=== PATIENT | female | born 1955 | race Caucasian/White ===

== ENCOUNTER 2017-05-12 12:27 | Emergency (ER) | payer MEDICARE, SELFPAY ==
[2017-05-12 12:28] VITALS: BP 146/92; PULSE 89; RESP 18; TEMP 36.4; O2SAT 99; BMI 22.6
--- NOTE | 2017-05-12 13:29 | VDLE_ITS ---
Reason For Study: LEG PAIN Procedure LEFT Exam performed portable in ED. GSV is normal. A preliminary report was called and/or faxed CFV is compressible, spontaneous, phasic, to Dr. Nuno. competent, and demonstrates normal augmentation. FV is compressible, spontaneous, phasic, competent and demonstrates normal augmentation. POP V is compressible, spontaneous, phasic, competent and demonstrates normal augmentation. T/P Trunk is compressible. PTV is compressible. LT PerV is compressible. Heterogenous structure noted lt med popliteal space extending to mid calf measuring 6.9 x 3.8 cm. Non-vascular. Interpretation Summary Deep veins of the left lower extremity are patent and compressible segmentally. There is no evidence of left lower extremity deep vein thrombosis. Valvular competence appears intact within the proximal deep venous system on the left . The left greater saphenous vein appears patent and compressible segmentally. A large, non-vascular, heterogeneous structure is noted in the left medial popliteal space, and extending to the left mid-calf, measuring 6.9 cm x 3.8 cm. Clinical correlation is advised, and alternative imaging may be helpful. Ordering Physician: Hans Nuno Referring Physician: Fareed Riley Performed By: Annette Hassan RVT
[2017-05-12] MEDS: HYDROmorphone 1 MG/ML Syringe IV ×4 (13:38→18:03)
--- NOTE | 2017-05-12 13:45 | RAD_ITS ---
STUDY: X-RAY - LEFT TIBIA AND FIBULA REASON FOR EXAM: Female, 61 years old. left leg pain NKI TECHNIQUE: 2 view(s) of the tibia and fibula were obtained. COMPARISON: None. FINDINGS: There is demineralization of the tibia. There is demineralization of the fibula. Advanced degenerative changes are noted in the medial femorotibial joint. There is soft tissue swelling of the ankle suggesting edema. RAD/Tibia & Fibula 2 Views IMPRESSION: No acute bone injury of the tibia and fibula. Electronically Signed: Suleman Blandon MD at 14:45 EDT Tel , Service support ,
[2017-05-12 13:51] LABS: Absolute Lymphocyte Count 1.71 X10^3/ul (0.83-4.51); Absolute Neutrophil Count 4.6 X10^3/uL (2.0-7.7); Basophil# 0.04 X10^3/uL; Basophil% 0.6 % (0-1); Eosinophil# 0.33 X10^3/uL; Eosinophils% 4.6 % (0-5); Hematocrit 36.4 % (37-47); Hemoglobin 12.2 g/dl (12.0-15.0); Lymphocyte # 1.71 X10^3/ul (4.0); Lymphocyte % 23.7 % (19-41); Mean Corp Hgb Conc 33.5 g/gl (32-36); Mean Corpuscular Hgb 30.4 pg (27.0-32.0); Mean Corpuscular Volume 90.8 fL (81-99); Mean Platelet Vol. 9.4 fl (6.2-12.0); Monocyte# 0.58 X10^3/uL; Neutrophil # 4.56 X10^3/uL (2.7-7.7); POSITIVE COUNT NO; POSITIVE DIFFERENTIAL NO; POSITIVE MORPHOLOGY NO; Platelet Count 312 K/mm3 (150-450); RBC Distribution Width CV 14.5 % (11.6-14.6); RBC Distribution Width SD 47.8 fl (35.1-43.9); Red Blood Count 4.01 M/mm3 (4.2-5.4); White Blood Count 7.2 K/mm3 (4.4-11.0)
[2017-05-12 13:58] LABS: International Normalized Ratio 0.9; Prothrombin Time (Protime)PT. 12.2 SECONDS (11.7-14.9)
[2017-05-12 13:59] LABS: Partial Thromboplast Time 31.6 Seconds (24.1-36.2)
--- NOTE | 2017-05-12 14:00 | RAD_ITS ---
STUDY: X-RAY - LEFT FOOT CLINICAL: Leg pain, no specific injury. TECHNIQUE: 3 view(s) of the foot. COMPARISON: Radiographs 03/14/2016. FINDINGS: There are postoperative changes with orthopedic hardware transfixing a chronic calcaneal fracture. Normal visualized talonavicular, calcaneocuboid, tarsal and tarsometatarsal articulations. There are postoperative changes of the first metatarsal from bunionectomy. Normal metatarsophalangeal joint of the great toe. Normal tibial and fibular sesamoid bones. Normal interphalangeal joint of the great toe. Normal phalanges of the great toe. There is chronic dorsal dislocations of the second and third metatarsophalangeal joints with arthrosis. Normal interphalangeal joints and phalanges of the lesser toes. The soft tissue structures are unremarkable. RAD/Foot min 3 Views IMPRESSION: Chronic calcaneal fracture with postoperative changes. 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 Electronically Signed: Chris Gillespie MD at 15:11 EDT Tel , Service support ,
[2017-05-12 14:05] LABS: AST(SGOT) 18 U/L (15-37); Alanine Aminotransfer ALT/SGPT 17 U/L (13-56); Albumin, Serum 3.7 g/dL (3.2-5.0); Alkaline Phosphatase 73 U/L (45-117); Anion Gap 4 (5-15); BUN 9 mg/dL (7-18); BUN/Creat Ratio 13.8 RATIO (10-20); CPK Total, Creatine Kinase 81 U/L (26-192); Calcium,Total 8.9 mg/dL (8.5-10.1); Chloride 95 mmol/L (98-107); Creatinine, Serum 0.65 mg/dL (0.55-1.02); EST Glomerular Filtration Rate 98 mL/min (>60); Est Glom Filt Rate - Afr Amer 119 mL/min (>60); Estimated Creatinine Clearance 87.24 ml/min; Globulin 3.6 g/dL (2.2-4.2); Glucose 71 mg/dL (74-106); Potassium 3.4 mmol/L (3.5-5.1); Protein, Total 7.3 g/dL (6.4-8.2); Sodium Level 135 mmol/L (136-145)
--- NOTE | 2017-05-12 14:15 | CT_ITS ---
STUDY: CT LEFT LOWER LEG WITH CONTRAST REASON FOR EXAM: Female, 61 years old. Leg mass RADIATION DOSAGE (If Supplied By Facility): CTDIvol = ( 15.35 ) mGy, DLP = ( 653.11 ) mGycm TECHNIQUE: Transaxial CT imaging of the knee was performed post contrast administration. The examination was performed with intravenous administration of 100 ml of Isovue 300 contrast material. COMPARISON: None. FINDINGS: Normal medial femoral condyle and medial tibial plateau. Degenerative changes of the of the medial knee compartment. Normal lateral femoral condyle and lateral tibial plateau. There is preservation of the articular joint space of the lateral knee compartment. Normal proximal tibiofibular articulation. Small knee joint effusion. There is no demonstrated abnormal enhancement. The patellar tendon is grossly normal. Normal Hoffa's fat pad. There is a heterogeneous mass in the medial gastrocnemius muscle measures approximately 14 x 5.6 x 7.6 cm it may represent a hematoma. Follow-up in one month is recommended to exclude a neoplastic process. CT/Extremity Lower WITH Contrast IMPRESSION: There is a heterogeneous mass in the medial gastrocnemius muscle measures approximately 14 x 5.6 x 7.6 cm it may represent a hematoma. Follow-up in one month is recommended to exclude a neoplastic process. Electronically Signed: Suleman Blandon MD at 15:34 EDT Tel , Service support ,
[2017-05-12 14:34] VITALS: BP 113/85; PULSE 87; RESP 22; O2SAT 96
[2017-05-12 16:18] VITALS: BP 153/87; PULSE 84; RESP 18; O2SAT 94
--- NOTE | 2017-05-12 16:34 | NURSING ---
GARETT GUSTAFSON REFUSED CALLED [facility]
--- NOTE | 2017-05-12 16:50 | ED.VISSUMM ---
- ER Visit Summary Date of Service: 05/12/17 Chief Complaint: Leg pain History of Present Illness: The patient is a 61 F with left calf pain that started suddenly this morning. Pain is severe and worse with movement. Patient had calcaneal surgery in February, but otherwise she has been doing well. She has a history of hep C. She does not take blood thinners. No history of DVT. No history of this kind of pain before. Physical Examination: Vital signs unremarkable. Afebrile. Patient is very uncomfortable. Grabbing her left leg. Pain with the slightest touch or movement of her left calf. Skin is firm on palpation. Enlarged compared to the right side. Neurovascular intact distally. Skin appears grossly intact. She has left foot postoperative changes, but the wound site looks like it is healing well. Test Results: Lab work largely unremarkable. CK normal. Coags normal. X-ray showed postoperative changes and nothing acute. Ultrasound showed no evidence of DVT but there is an underlying mass. CT was done and showed a 14 x 5 x 7 cm mass concerning for hematoma versus underlying neoplasm. Emergency Department Course and Treatment: Patient required several doses of Dilaudid and was still having a lot of pain. I spoke with her surgeons on-call partner and notify them that the patient was in the ED. I also spoke with orthopedics here, and they were concerned given the possibility of an underlying malignancy that the patient should go to a higher level of care for appropriate care. I called [facility] and the orthopedic doctor there recommended that the patient go to the [facility]. I spoke with Dr. Lofton who is on-call for the [facility]. He said that the patient should go to medicine and they could evaluate the patient if needed. At the time of this dictation, I am awaiting a call back from medicine at the [facility]. Dr. George accepted the patient. She wants to go by private vehicle. Discussed risks. Treatment Plan: As above Disposition: Transfer to F Impression: 1. Left leg mass This note was generated with [employer] dictation software. It may contain incorrect words, spelling, and punctuation that were not noted in review of the chart prior to signing ED Disposition - Plan for ED Patient: Chief Complaint: Lower Extremity Injury Referrals: Fareed Riley DO [Primary Care Provider] -
--- NOTE | 2017-05-12 16:53 | ED.DCSUM_ITS ---
- ER Visit Summary Date of Service: 05/12/17 Chief Complaint: Leg pain History of Present Illness: The patient is a 61 F with left calf pain that started suddenly this morning. Pain is severe and worse with movement. Patient had calcaneal surgery in February, but otherwise she has been doing well. She has a history of hep C. She does not take blood thinners. No history of DVT. No history of this kind of pain before. Physical Examination: Vital signs unremarkable. Afebrile. Patient is very uncomfortable. Grabbing her left leg. Pain with the slightest touch or movement of her left calf. Skin is firm on palpation. Enlarged compared to the right side. Neurovascular intact distally. Skin appears grossly intact. She has left foot postoperative changes, but the wound site looks like it is healing well. Test Results: Lab work largely unremarkable. CK normal. Coags normal. X-ray showed postoperative changes and nothing acute. Ultrasound showed no evidence of DVT but there is an underlying mass. CT was done and showed a 14 x 5 x 7 cm mass concerning for hematoma versus underlying neoplasm. Emergency Department Course and Treatment: Patient required several doses of Dilaudid and was still having a lot of pain. I spoke with her surgeons on-call partner and notify them that the patient was in the ED. I also spoke with orthopedics here, and they were concerned given the possibility of an underlying malignancy that the patient should go to a higher level of care for appropriate care. I called [facility] and the orthopedic doctor there recommended that the patient go to the [facility]. I spoke with Dr. Lofton who is on-call for the [facility]. He said that the patient should go to medicine and they could evaluate the patient if needed. At the time of this dictation, I am awaiting a call back from medicine at the [facility]. Dr. George accepted the patient. She wants to go by private vehicle. Discussed risks. Treatment Plan: As above Disposition: Transfer to F Impression: 1. Left leg mass This note was generated with [employer] dictation software. It may contain incorrect words, spelling, and punctuation that were not noted in review of the chart prior to signing ED Disposition - Plan for ED Patient: Chief Complaint: Lower Extremity Injury Referrals: Fareed Riley DO [Primary Care Provider] -
--- NOTE | 2017-05-12 16:54 | NURSING ---
[id number] VELAZQUEZ
--- NOTE | 2017-05-12 17:00 | NURSING ---
DR BUNCH FOR DR VELAZQUEZ
--- NOTE | 2017-05-12 17:41 | NURSING ---
[facility] MAIN [id number] BED 31 REPORT [phone]
--- NOTE | 2017-05-12 17:47 | NURSING ---
CALLED [facility]GGIEROIT ETA IS 1 HR TO 1.5 HRS CALLED [facility], THEY WILL SEND CREW
--- NOTE | 2017-05-12 18:03 | ED.RN ---
called report to Jennifer BORDEN @ [facility]
== END 2017-05-12 18:17 | disposition short-term general hospital (02) ==
PROVIDERS: Emergency Provider Emergency Medicine; Family Provider Family Medicine; PCP Family Medicine
DX: R22.42 Localized swelling, mass and lump, left lower limb (principal); J44.9 Chronic obstructive pulmonary disease, unspecified; B19.20 Unspecified viral hepatitis C without hepatic coma; K74.60 Unspecified cirrhosis of liver; Z72.0 Tobacco use
CPT/HCPCS: 73590; 73630; 73701; 80053; 82550; 85025; 85610; 85730; 93971; 96374; 96376; 99285; Q9967; A4216

== ENCOUNTER → 2017-05-23 06:50 | Outpatient (CLI) | payer MEDICARE, SELFPAY ==
--- NOTE | 2017-05-23 06:59 | MRI_ITS ---
STUDY: MRI LOWER EXTREMITY LEFT TIBIA/FIBULA WITH AND WITHOUT CONTRAST REASON FOR EXAM: Left gastrocnemius mass, symptoms for 3 weeks. TECHNIQUE: Standardized fat and water weighted pulse sequences were obtained in all 3 orthogonal planes, post contrast administration. 7 ml of Gadavist contrast material was administered intravenously for the contrast portion of the examination. COMPARISON: CT images 05/12/2017 and radiographs 05/12/2017. FINDINGS: There is a small subchondral stress fracture of the left medial tibial plateau (T2 coronal images 17, 18) with associated bone edema (inversion recovery sagittal images 7, 8). Normal visualized left fibula. There is a lesion in the medial gastrocnemius measuring 3.9 x 5.5 x 14.7 cm (AP x transverse x length). The lesion demonstrates hemorrhage on T1 sequences (T1 axial images 9-29) with heterogeneous signal intensity on T2 sequences (T2 coronal images 4-15). There is nodularity at the inferior medial aspect of the wall of the lesion (T1 sagittal images 2-4) and therefore this is of concern for a hemorrhagic soft tissue tumor. It is difficult to demonstrate contrast enhancement of the wall of the mass or nodularity because of the increased T1 signal from hemorrhage. There is very mild edema in the distal medial gastrocnemius muscle adjacent to the mass. Normal subcutis adipose space, without subcutis adipose space edema. There is a small left popliteal cyst (inversion recovery sagittal images 5, 6) with contrast enhancement of the wall of the cyst. 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 Small subchondral stress fracture of the left medial tibial plateau. Small left popliteal cyst. Electronically Signed: Chris Gillespie MD at 10:19 EDT Tel , Service support ,
== END ==
PROVIDERS: Family Provider Family Medicine; PCP Family Medicine; Visit Provider Family Medicine
DX: M84.362A Stress fracture, left tibia, initial encounter for fracture (principal); M71.22 Synovial cyst of popliteal space [Baker], left knee; R22.42 Localized swelling, mass and lump, left lower limb
CPT/HCPCS: 73720; A9585

== ENCOUNTER → 2017-05-26 10:54 | Outpatient (CLI) | payer MEDICARE, SELFPAY ==
--- NOTE | 2017-05-26 10:56 | RAD_ITS ---
STUDY: X-RAY - RIGHT HUMERUS REASON FOR EXAM: Female, 62 years old. Pain, decreased range of motion TECHNIQUE: 2 view(s) of the humerus. COMPARISON: None. FINDINGS: Normal visualized humerus. There is no demonstrated fracture or osseous destructive process. There is no demonstrated soft tissue abnormality. RAD/Humerus min 2 Views IMPRESSION: Normal x-ray examination of the humerus. Electronically Signed: Juancarlos Corona MD at 10:32 EDT , Service support ,
== END ==
PROVIDERS: Family Provider Family Medicine; PCP Family Medicine; Visit Provider Surgery Vascular Surgery
DX: M79.601 Pain in right arm (principal)
CPT/HCPCS: 73060

== ENCOUNTER 2018-03-02 11:18 | Emergency (ER) | payer MEDICARE, SELFPAY ==
[2018-03-02 11:18] VITALS: BP 159/80; PULSE 101; RESP 16; TEMP 36.4; O2SAT 97; BMI 20.9
--- NOTE | 2018-03-02 12:06 | ED.VISSUMM ---
- ER Visit Summary Date of Service: 03/02/18 Chief Complaint: Forehead laceration History of Present Illness: The patient is a 62 F who sustained a forehead laceration after a mechanical fall earlier this morning. No loss of consciousness no neck pain no other injury. She is not on any blood thinners. No vomiting. Physical Examination: Otherwise normal exam no C-spine tenderness, clear lungs. No evidence of extremity injury. She has a 2 cm laceration above her right eye in the forehead and eyebrow region. It is horizontal. No nasal septal hematoma. She is lucid coherent with a GCS of 15. Emergency Department Course and Treatment: X-rays not warranted, CT not warranted. Patient was sutured, 1 4-0 nylon suture was placed with good approximation. No further bleeding. Tetanus updated Disposition: Discharge stable condition Impression: Laceration forehead 2 cm Closed head injury This note was generated with [employer] dictation software. It may contain incorrect words, spelling, and punctuation that were not noted in review of the chart prior to signing ED Disposition - Plan for ED Patient: Disposition: Home or Assisted Living Chief Complaint: Laceration Instructions: ED Laceration All Referrals: Fareed Riley DO [Primary Care Provider] - 3-5 Days suture removal
[2018-03-02] MEDS: Diphth,Pertuss(Acell),Tet Vac 0.5 ML Vial IM (12:19)
== END 2018-03-02 12:23 | disposition home or self-care (01) ==
PROVIDERS: Emergency Provider Emergency Medicine; Family Provider Family Medicine; PCP Family Medicine
DX: S01.81XA Laceration without foreign body of other part of head, initial encounter (principal); W00.0XXA Fall on same level due to ice and snow, initial encounter; Y93.9 Activity, unspecified; Y92.9 Unspecified place or not applicable; J44.9 Chronic obstructive pulmonary disease, unspecified; Z72.0 Tobacco use
CPT/HCPCS: 12011; 90471; 90715; 99283

== ENCOUNTER 2018-07-17 12:35 | Inpatient (IN) | payer MEDICARE, SELFPAY ==
[2018-07-17 12:35] VITALS: BP 146/94; PULSE 103; RESP 18; TEMP 37.3; O2SAT 95; BMI 20.9
[2018-07-17 13:01] LABS: Absolute Lymphocyte Count 1.13 X10^3/ul (0.83-4.51); Absolute Neutrophil Count 10.1 X10^3/uL (2.0-7.7); Basophil# 0.03 X10^3/uL; Basophil% 0.2 % (0-1); Eosinophil# 0.26 X10^3/uL; Hemoglobin 10.9 g/dl (12.0-15.0); Lymphocyte # 1.13 X10^3/ul (4.0); Lymphocyte % 8.8 % (19-41); Mean Corp Hgb Conc 34.1 g/gl (32-36); Mean Corpuscular Hgb 28.5 pg (27.0-32.0); Mean Corpuscular Volume 83.6 fL (81-99); Mean Platelet Vol. 9.1 fl (6.2-12.0); Monocyte# 1.25 X10^3/uL; Monocyte% 9.8 % (0-10); Neutrophil # 10.13 X10^3/uL (2.7-7.7); POSITIVE COUNT NO; POSITIVE DIFFERENTIAL NO; POSITIVE MORPHOLOGY NO; Platelet Count 309 K/mm3 (150-450); RBC Distribution Width CV 14.4 % (11.6-14.6); RBC Distribution Width SD 42.9 fl (35.1-43.9); Red Blood Count 3.83 M/mm3 (4.2-5.4); White Blood Count 12.8 K/mm3 (4.4-11.0)
[2018-07-17 13:12] LABS: Anion Gap 5 (5-15); BUN 9 mg/dL (7-18); BUN/Creat Ratio 12.6 RATIO (10-20); Chloride 87 mmol/L (98-107); Creatinine, Serum 0.72 mg/dL (0.55-1.02); EST Glomerular Filtration Rate 88 mL/min (>60); Est Glom Filt Rate - Afr Amer 106 mL/min (>60); Estimated Creatinine Clearance 76.38 ml/min; Glucose 109 mg/dL (74-106); Potassium 3.7 mmol/L (3.5-5.1); Sodium Level 123 mmol/L (136-145)
[2018-07-17 13:25] LABS: Lactic Acid 0.5 mmol/L (0.4-2.0)
[2018-07-17 15:14] VITALS: BP 148/95; PULSE 87; RESP 20; TEMP 36.6; O2SAT 99
--- NOTE | 2018-07-17 15:18 | ED.DCSUM_ITS ---
History of Present Illness Chief Complaint: Cellulitis Detail of Chief Complaint: Right foot and leg were red and swollen Informant: Patient Onset: Days Context: Gradual Onset Timing: Continuous Quality: Redness and swelling and not feeling well Location: Scratch by dog several days ago and not feeling well since this morning Current Severity: Moderate Maximum Severity: Moderate Worsened by: Wound uncared for Relieved by: Nothing Associated Symptoms: subjective fever, not feeling well Narrative: Patient is a 63-year-old woman with history of COPD who is not a good informant. She needed to be redirected multiple times. She was speaking of a spider in the garage. She states it was a big spider. Asked how this was relevant to her foot and her daughter respond that she was scratched by a dog. Patient denies headache. She denies visual, ocular auditory symptoms. She denies cardiac respiratory symptoms. She denies nausea, vomiting diarrhea. She denies urologic symptoms. She states the redness only involve the foot it is now spread to the knee. Prior similar symptoms: Yes Recent Illness/Hospitalization: No - Past Medical History (1) Depression Status: Chronic (2) Gastroesophageal reflux disease Status: Chronic (3) H/O chronic obstructive lung disease Status: Chronic (4) Hepatitis C Status: Chronic (5) Liver cirrhosis Status: Chronic (6) Tobacco abuse Status: Chronic Past Medical History - Allergies and Home Meds Allergies/Adverse Reactions: Allergies cyclobenzaprine HCl [From Flexeril] Allergy (Verified 07/17/18 12:35) Unknown nylon [Nylon 12] Allergy (Verified 07/17/18 12:35) Unknown BANDAIDS Allergy (Uncoded 07/17/18 12:35) Unknown Primary Care Physician: Fareed Riley DO [Primary Care Provider] - Prior records reviewed: Yes Surgical History: - - Multiple surgeries including, left knee surgery, left toe dislocation pinning, others Lives: With Family Smoking Status: Current every day smoker Alcohol: Heavy Drugs: None - Family History Maternal Family History: Reports: No pertinent history Paternal Family History: Reports: No pertinent history Review of Systems General: Reports: Chills, Fever, Malaise, Subjective. Denies: Sweats, Weight loss Eyes: Denies: Visual changes - bilaterally, Blurred Vision - bilaterally, Diplopia ENT: Denies: Bilateral ear pain, Rhinorrhea, Sore throat Cardiovascular: Denies: Chest pain, Palpitations Respiratory: Denies: Dyspnea, Cough, Dyspnea on exertion Gastrointestinal: Denies: Abdominal pain, Nausea, Vomiting, Diarrhea, Melena, Hematochezia Genitourinary: Denies: Dysuria, Hematuria, Frequency Musculoskeletal: Denies: Back pain, Extremity Pain Skin: Reports: Rash, Abrasions, Wounds. Denies: Abscess Neurological: Reports: Weakness. Denies: Headache, Parasthesia, Numbness Psych: Denies: Depression Hematologic: Denies: Easy bruising, Easy bleeding Allergy: Denies: Uticaria Physical Exam Vital Signs/Narrative: Vital Signs Temp Pulse Resp BP Pulse Ox 07/17/18 12:35 99.1 F 103 H 18 146/94 H 95 Inital Vital Signs reviewed: Yes General: Well nourished, Well developed, Unkempt, No Acute Distress Head: Normocephalic, Atraumatic Eyes: Perrl, EOMI. Negative for: Pale conjunctiva, Scleral icterus, - ENT: Moist mucous membranes, No rhinorrhea Neck: Supple, Nontender Cardiovascular: Regular rate, Regular rhythm, No murmurs Respiratory: No distress, CTA bilaterally, Chest nontender Abdomen: Soft, Nontender, Nondistended, Normal bowel sounds Back: Nontender, Normal Inspection Extremities: Tenderness, Edema Skin: Normal color, Rash, Trauma, - - Is a wound noted dorsal mid right foot and abrasion anterior right ankle. There is significant cellulitis of the foot and distal foot with erythema spreading to the knee. There is right inguinal lymphadenopathy. DP and PT pulse are palpable on the right. Pulses are not palpable on the left. Neurological: Alert, Oriented x3, Cranial nerves II-XII grossly intact, Normal Strength, Normal Sensation Psychological: Normal affect, Normal Mood, Agitated - Patient upset that she needs admission. Consult to case management because she has a daughter with her who needs supervision. Diagnostic/Tx/Re-eval Laboratory Results 07/17/18 07/17/18 07/17/18 12:48 12:48 12:48 WBC 12.8 H RBC 3.83 L Hgb 10.9 L Hct 32.0 L MCV 83.6 MCH 28.5 MCHC 34.1 RDW 14.4 RDW Differential 42.9 Plt Count 309 MPV 9.1 Immature Gran % (Auto) 0.200 Neut % (Auto) 79.0 H Lymph % (Auto) 8.8 L Sequoyah % (Auto) 9.8 Eos % (Auto) 2.0 Baso % (Auto) 0.2 Absolute Neuts (auto) 10.1 H Absolute Lymphs (auto) 1.13 Total Counted Not Reportable Sodium 123 L Potassium 3.7 Chloride 87 L Carbon Dioxide 31.0 Anion Gap 5 BUN 9 Creatinine 0.72 Estim Creat Clear Calc 76.38 Est GFR (MDRD) Af Amer 106 Est GFR (MDRD) Non-Af 88 BUN/Creatinine Ratio 12.6 Glucose 109 H Lactic Acid 0.5 Calcium 9.0 - Medical Decision Making Patient has cellulitis. Need to rule out sepsis versus severe sepsis etc. Appropriate blood work was ordered per nursing protocol. Patient has a white count. Since she has progressive cellulitis will start on Zosyn and vancomycin. Patient does have a white count. Heart rate on the monitor was 94. Since she has a source with elevated white count heart rate on monitor greater than 90 respirate greater than 20 she by definition of sepsis. Since this is progressing rapidly recommend IV antibiotics and admission. Will contact hospitalist. ED Disposition - Plan for ED Patient: Disposition: Acute Care Hospital [facility] Diagnosis: Cellulitis of right lower extremity, Sepsis, History of COPD, History of tobacco use, History of alcohol use disorder Referrals: Fareed Riley DO [Primary Care Provider] -
--- NOTE | 2018-07-17 15:38 | HP.PCM_ITS ---
Problem List (1) Cellulitis of right lower extremity Status: Acute (2) Sepsis Status: Acute Qualifiers: Sepsis type: sepsis due to unspecified organism Qualified Code(s): A41.9 - Sepsis, unspecified organism (3) History of tobacco use Status: Chronic (4) Hepatitis C Status: Chronic Qualifiers: Viral hepatitis chronicity: chronic Hepatic coma status: without hepatic coma Qualified Code(s): B18.2 - Chronic viral hepatitis C (5) Liver cirrhosis Status: Chronic Qualifiers: Hepatic cirrhosis type: alcoholic cirrhosis Ascites presence: without ascites Qualified Code(s): K70.30 - Alcoholic cirrhosis of liver without ascites History of Present Illness Date of Admission: 07/17/18 Chief Complaint: Left lower leg swelling and redness The patient is a 63 year old F past medical history of liver cirrhosis, chronic hepatitis C C, nicotine dependence, who comes in with complaints of left foot swelling with erythema ongoing since the past 4 days. Patient states that she was initially bitten by a spider on her left foot, which was very itchy, and she kept scratching and it became resolved. She later on sustained injury from the claw of 1 of her dogs in her house to the left ankle. She complains of some fever and chills as well as nausea but no vomiting. Denied chest pain or shortness of breath. Vitals in the ED show temperature of 99.1F, heart rate was 103, blood pressure is 146/94, respiratory rate was 18, SPO2 was 95% on room air. Admitting blood work showed WBC count of 12.8, hemoglobin 10.9, platelet count of 309, sodium was 123, potassium 3.7, chloride 87, bicarbonate 31, BUN 9, creatinine 0.71. Past Medical History Past Medical History (Chronic Problems): Chronic Problems History of tobacco use (Chronic) Hepatitis C (Chronic) Liver cirrhosis (Chronic) H/O chronic obstructive lung disease (Chronic) Gastroesophageal reflux disease (Chronic) Depression (Chronic) Tobacco abuse (Chronic) Chronic pain (Chronic) Insomnia (Chronic) liver cirrhosis - etoh hep C (Chronic) Allergies cyclobenzaprine HCl [From Flexeril] Allergy (Verified 07/17/18 12:35) Unknown nylon [Nylon 12] Allergy (Verified 07/17/18 12:35) Unknown BANDAIDS Allergy (Uncoded 07/17/18 12:35) Unknown Home Medications: Ambulatory Orders Medication Instructions Recorded Budesonide/Formoterol 160/4.5 2 puff INHALATION BID 10/14/13 [Symbicort 160/4.5 Mcg Inhaler (SP)] Doxepin HCl 100 mg PO QHS 10/14/13 Oxycodone HCl 15 mg PO 4X/DAY 11/10/13 Albuterol Aerosols [Ventolin 2.5 mg INHALATION Q4HWA.RT PRN 07/17/18 Aerosols] Surgical History: - - Multiple surgeries including, left knee surgery, left toe dislocation pinning, others Psychiatric History: No pertinent psych hx [employer]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 Denies: Anorexia, Chills, Fever, Weakness, Weight Change Eyes: Denies: Blurred vision, Cataracts, Conjunctivae Inflammation, Pain, Redness HEENT: Denies: Dysphasia, Head Aches, Hearing Changes, Sinus Congestion, Sinus Drainage, Sore Throat Cardiovascular: Denies: Chest Pain, Claudication, Orthopnea, Palpitations, Paroxysmal Noc. Dyspnea Respiratory: Denies: Cough, Shortness of Breath, Shortness of breath at rest, Shortness of breath upon exertion, Sputum production Gastrointestinal: Denies: Abdominal Pain, Constipation, Hematemesis, Hematochezia, Nausea, Vomiting Genitourinary: Denies: Dysuria, Frequency Gynecological: Denies: Breast symptoms, Excessively long or heavy periods Musculoskeletal: Denies: Joint Pain, Joint stiffness, Joint swelling, Joint Tenderness Skin: Reports: Skin Changes - redness and swelling of foot and lower leg, Wounds Neurological: Denies: Difficulty swallowing, Focal weakness, Numbness, Tingling Psychiatric: Denies: Anxiety, Depression, Homicidal Ideations, Suicidal Ideations Hematologic/ Lymphatic: Denies: Easy Bruising, Easy Bleeding VTE Information - Inpt Only VTE Present on Admission: No VTE Pharm Prophylaxis ordered?: Yes Patient Problems: Active and Suspected Problems Cellulitis of right lower extremity (Acute) Sepsis (Acute) History of alcohol use disorder (Acute) - Physical Exam General: Alert, Oriented x3, Cooperative HEENT: Atraumatic, PERRLA, EOMI, Normocephalic Oral: Dry Mucosa Neck: Supple Lungs: Clear to auscultation, Normal air movement Cardiovascular: Regular rate, Regular Rhythm, Normal S1, Normal S2, No murmurs Abdomen: Bowel Sounds Present, Soft, Non Tender, Non-Distended, No Hepato- splenomegaly Extremities: Edema - bilateral pedal edema +1 in right leg and +2 in left leg with erythema, edema in left foot, extending to lower leg with 2 areas of ulcerations. Skin: - - 2 puncture wounds on the dorsum of left foot and ankle Musculoskeletal: No Tenderness to Palpation of Joints or Extremities Lymphatic: No Cervical, Supraclavicular, or Inguinal Adenopathy Neurological: Cranial nerves II-XII grossly intact, Neuro grossly intact Psych/Mental Status: Normal Affect, Appropriate Vital Signs Temp Pulse Resp BP Pulse Ox 97.8 F 87 20 H 148/9 H 99 07/17/18 15:14 07/17/18 15:14 07/17/18 15:14 07/17/18 15:14 07/17/18 15:14 Oxygen Delivery Method Room Air Weight: 58.967 kg Body Mass Index (BMI) 20.9 Laboratory Tests Past 24 Hrs 07/17/18 07/17/18 07/17/18 12:48 12:48 12:48 WBC 12.8 H RBC 3.83 L Hgb 10.9 L Hct 32.0 L MCV 83.6 MCH 28.5 MCHC 34.1 RDW 14.4 RDW Differential 42.9 Plt Count 309 MPV 9.1 Immature Gran % (Auto) 0.200 Neut % (Auto) 79.0 H Lymph % (Auto) 8.8 L [place] % (Auto) 9.8 Eos % (Auto) 2.0 Baso % (Auto) 0.2 Absolute Neuts (auto) 10.1 H Absolute Lymphs (auto) 1.13 Total Counted Not Reportable Sodium 123 L Potassium 3.7 Chloride 87 L Carbon Dioxide 31.0 Anion Gap 5 BUN 9 Creatinine 0.72 Estim Creat Clear Calc 76.38 Est GFR (MDRD) Af Amer 106 Est GFR (MDRD) Non-Af 88 BUN/Creatinine Ratio 12.6 Glucose 109 H Lactic Acid 0.5 Calcium 9.0 Assessment/Plan All Active Problems Cellulitis of right lower extremity (Acute) Sepsis (Acute) History of alcohol use disorder (Acute) Fall (Acute) Fracture of calcaneus, left, closed (Acute) 63 year old F past medical history of liver cirrhosis, compensated, chronic hepatitis C, nicotine dependence, history of COPD, not on oxygen who comes in with complaints of left foot swelling with erythema ongoing since the past 4 days. 1. Sepsis secondary to acute left foot/leg cellulitis secondary to spider bite and also puncture wound from claw of the dog Patient looks clinically stable, elevation in WBC count to 12.8, slight tachycardia Plan: Admit to MedSurg floor, continue on IV Unasyn, elevate extremity, gentle IV fluids, repeat blood work in a.m. 2. Hyponatremia, acute, likely secondary to dehydration, will continue on IV fluids, recheck BMP 3. Nicotine dependence, on replacement, advised to quit 4. Chronic hepatitis C with liver cirrhosis, needs to follow-up in the outpatient 5. Chronic back pain, in pain management, on chronic opioids, will continue same 6. DVT PPx- Heparin SC Code Visit Inpatient E&M: 33850 Init Hosp L3
[2018-07-17 16:07] VITALS: BP 141/91; PULSE 91; RESP 20; TEMP 36.6; O2SAT 98
--- NOTE | 2018-07-17 16:10 | ED.RN ---
UNABLE TO OBTAIN SECOND BLOOD CULTURE, PT BECAME IRRITABLE, DECLINED FURTHER ATTEMPTS.
--- NOTE | 2018-07-17 16:20 | CASEMGMT ---
Addendum entered by Gela Wilson 07/17/18 16:32: Patient states that she has a lady that comes in her home every once in awhile through [facility] but not sure if she is an Aide. States she does not do anything. States sits there and passes time until she has to leave. DAVE Tsang Original Note: RN CM Assessment Introduced role of RN CM to patient and patient 17yo dtr Farida at bedside.? Patient is alert, oriented and able?to participate in RN CM Assessment. ?Care providers, pharmacy, and demographics verified. Presentation: RLE- scratched by dog and c/o redness, swelling. Admit Dx: Right Foot Wound Re-Admit: No Barriers/Issues: None, Patient states all her family dies of cancer, Lack of Support system. Has a 17yo Dtr that lives with her- turns 20yo in October. PCP: Fareed Riley Specialists: States quit seeing specialist for her Liver and lungs in [place]- states just does not want to see them anymore, denies distance being an issue. [facility] [place] [facility] [place] [facility] Rx Benefit:?Yes LNOK: Dtr Farida De Dios LW/HPOA: States has a LW, denies HPOA or wanting information on HPOA Living Arrangements:?Lives with 17yo Dtr in a SS home, 3 steps to enter front, 1 step to enter back. ADL?s: Independent with ambulation and ADL's Transportation: Patient drives, drove self here and plans to drive herself on [place]. Dtr here at hospital and only has her drivers permit- her father will come pick her up. DME: [employer] HHC: None SNF: None Goal: Home, does not think will have any needs. States if HHC recommended- ok with that and no preference on Agency, preference in network. States if IV Abx recommended- ok with that and states she is able to be educated on giving herself. No preference on Infusion company- In network. DC PLAN: Home with possible IV Abx. DAVE Tsang
[2018-07-17 17:04] VITALS: BMI 21.5
[2018-07-17 17:50] VITALS: BP 148/93; PULSE 94; RESP 18; TEMP 37.1; O2SAT 100
[2018-07-17] MEDS: oxyCODONE 5 MG Tablet 15 MG PO ×2 (17:50→21:54)
[2018-07-17] MEDS: Vancomycin IV 1,000 MG/200 ML BAG 200 MG IV (17:52)
[2018-07-17] MEDS: 0.9% Normal Saline 1,000 ML 75 ML IV (17:52)
[2018-07-17 19:28] LABS: Anion Gap 8 (5-15); BUN 7 mg/dL (7-18); BUN/Creat Ratio 9.8 RATIO (10-20); Calcium,Total 9.2 mg/dL (8.5-10.1); Chloride 88 mmol/L (98-107); Creatinine, Serum 0.72 mg/dL (0.55-1.02); EST Glomerular Filtration Rate 88 mL/min (>60); Est Glom Filt Rate - Afr Amer 107 mL/min (>60); Estimated Creatinine Clearance 76.81 ml/min; Glucose 84 mg/dL (74-106); Potassium 3.1 mmol/L (3.5-5.1); Sodium Level 126 mmol/L (136-145)
[2018-07-17] MEDS: 0.9% NaCl Peripheral Flush Adult/Peds IV ×3 (20:11→20:23)
[2018-07-17] MEDS: Ondansetron 4 MG/2 ML Vial IV (20:23)
[2018-07-17 20:30] VITALS: BP 149/85; PULSE 94; RESP 18; TEMP 37.3; O2SAT 94
[2018-07-17] MEDS: Heparin Injection (Vial) 5,000 UNIT/ML VIAL 5000 UNIT SC (21:48)
[2018-07-17] MEDS: DOXEPIN HCL 50 MG CAPSULE 100 MG PO (21:48)
[2018-07-18] MEDS: 0.9% NaCl Peripheral Flush Adult/Peds IV ×2 (02:44→08:06)
[2018-07-18 02:45] VITALS: BP 121/75; PULSE 94; RESP 18; TEMP 36.9; O2SAT 95
--- NOTE | 2018-07-18 05:06 | NURSING ---
Pt reported bumping her foot. notified and ordered a one time dose for pain med. Talked to the pt and she states that our medications don't do anything for her. Stated she was going to call her ex- and he will bring her pills. This nurse informed the pt that she cannot take pills from home while she is in the hospital. Pt states she did it the last time she was here. Pt called her daughter. Told her daughter that she is leaving and we have not done a thing for her and she is having back pain. Charge nurse notified.
[2018-07-18] MEDS: oxyCODONE 5 MG Tablet 15 MG PO (05:35)
--- NOTE | 2018-07-18 05:37 | NURSING ---
pt agreed to take the one time dose of pain med ordered by the . Pt started looking in her purse. Pt stated that she was going to snort the medication because her friend told her that snorting the medication would help her. This nurse told the pt that she would have to swallow the pills. States she is going to leave at 1 pm take her medications at home and then come back tonight. Pt states she is not going to do anything breathing treatments or blood draws today.
--- NOTE | 2018-07-18 06:50 | NURSING ---
pt refused morning labs
--- NOTE | 2018-07-18 06:57 | NURSING ---
anais was not in the refrigerator. Called Tashi in RX and said to send it down to him. Have not received it back yet.
--- NOTE | 2018-07-18 07:33 | NURSING ---
offered pt mirapex several times and she has refused. Last time offered was at shift change. Pt states that the told her it wasn't going to work and she doesn't want to try.
[2018-07-18 08:07] VITALS: BP 142/66; PULSE 104; RESP 18; TEMP 37.8; O2SAT 94
[2018-07-18] MEDS: Pramipexole Di-HCl 0.5 MG Tablet PO (08:24)
--- NOTE | 2018-07-18 08:45 | NURSING ---
Pt out to desk, yelling in hallway stating that she is going to leave. Patient states we are not managing her pain and that her foot is burning and that her back is killing her. Dr. Cortez on unit and aware, states he will see patient soon. Pt assisted back to her room and informed that Dr. Cortez would be in to see her as soon as he was able, as he was on the unit seeing other patients. Pt swearing at this nurse, stating that the doctors here lied to her about her pain. Pt reports taking 15mg tabs of oxycodone 4 times a day at home, then stated that she takes 2 tabs at a time. Pt reminded that she had 15mg of oxycodone around 0530 this am. Pt states So? What does that mean? Patient stated that her foot is more red now than it was when she came in. Pt reminded that the doctor would evaluate her foot and that she is still getting IV antibiotics. Patient still adamant that she is leaving. AMA form provided, but patient refusing to sign form. Pt asking to have IV removed, this nurse stated she would remove, but that there was no gauze in the room. This nurse left to obtain gauze and when back into room patient stated look, I did it for you. Patient bleeding from IV site onto floor. Pressure applied, covered with 2x2 and no further bleeding noted. Patient got herself dressed, except for her right shoe. Patient offered a wheelchair, but declined. Patient walked herself off unit.
--- NOTE | 2018-07-18 08:54 | NURSING ---
Patient leaving AMA, refusing to sign AMA form.
--- NOTE | 2018-07-18 09:44 | PCM.DC.SUM ---
Discharge Date and Diagnosis Date of Admission: 07/17/18 Date of Discharge: 07/18/18 - Secondary Discharge Diagnosis Chronic Problems History of tobacco use (Chronic) Hepatitis C (Chronic) Liver cirrhosis (Chronic) H/O chronic obstructive lung disease (Chronic) Gastroesophageal reflux disease (Chronic) Depression (Chronic) Tobacco abuse (Chronic) Chronic pain (Chronic) Insomnia (Chronic) liver cirrhosis - etoh hep C (Chronic) Hospital Course and Treatment Operations: None, - - Open reduction and internal fixation of left calcaneal fracture with bone graft. Procedures: None Summary of Care Provided: The patient is a 63 year old F resents with cellulitis. Patient stated that her pain was being managed appropriately and was insisting on leaving AGAINST MEDICAL ADVICE. The charge nurse, spoke with patient and informed the patient that I would see her within the next several minutes to speak with her about her cellulitis as well as her pain. Patient stated that she would not wait and insisted on leaving AGAINST MEDICAL ADVICE. I was unable to see the patient and her talk with her nor examine her. [] - Physical Exam Vital Signs Temp Pulse Resp BP Pulse Ox 37.8 C H 104 H 18 142/66 H 94 07/18/18 08:07 07/18/18 08:07 07/18/18 08:07 07/18/18 08:07 07/18/18 08:07 Oxygen Delivery Method Room Air Weight: 60.555 kg Body Mass Index (BMI) 21.5 Intake and Output for Last 24 Hours 07/16/18 07/17/18 07/18/18 23:59 23:59 23:59 Intake Total 200 / 200 1825 / 1825 Output Total 1350 / 1350 Balance 200 / 200 475 / 475 Laboratory Tests Past 24 Hrs 07/17/18 07/17/18 07/17/18 12:48 12:48 12:48 WBC 12.8 H RBC 3.83 L Hgb 10.9 L Hct 32.0 L MCV 83.6 MCH 28.5 MCHC 34.1 RDW 14.4 RDW Differential 42.9 Plt Count 309 MPV 9.1 Immature Gran % (Auto) 0.200 Neut % (Auto) 79.0 H Lymph % (Auto) 8.8 L [place] % (Auto) 9.8 Eos % (Auto) 2.0 Baso % (Auto) 0.2 Absolute Neuts (auto) 10.1 H Absolute Lymphs (auto) 1.13 Total Counted Not Reportable Sodium 123 L Potassium 3.7 Chloride 87 L Carbon Dioxide 31.0 Anion Gap 5 BUN 9 Creatinine 0.72 Estim Creat Clear Calc 76.38 Est GFR (MDRD) Af Amer 106 Est GFR (MDRD) Non-Af 88 BUN/Creatinine Ratio 12.6 Glucose 109 H Lactic Acid 0.5 Calcium 9.0 07/17/18 18:55 WBC RBC Hgb Hct MCV MCH MCHC RDW RDW Differential Plt Count MPV Immature Gran % (Auto) Neut % (Auto) Lymph % (Auto) [place] % (Auto) Eos % (Auto) Baso % (Auto) Absolute Neuts (auto) Absolute Lymphs (auto) Total Counted Sodium 126 L Potassium 3.1 L Chloride 88 L Carbon Dioxide 30.0 Anion Gap 8 BUN 7 Creatinine 0.72 Estim Creat Clear Calc 76.81 Est GFR (MDRD) Af Amer 107 Est GFR (MDRD) Non-Af 88 BUN/Creatinine Ratio 9.8 L Glucose 84 Lactic Acid Calcium 9.2 Home Medications: Medications to take at Discharge Budesonide/Formoterol 160/4.5 [Symbicort 160/4.5 Mcg Inhaler (SP)] 2 puff INHALATION BID 10/14/13 Doxepin HCl 100 mg PO QHS 10/14/13 Oxycodone HCl 15 mg PO 4X/DAY 11/10/13 Albuterol Aerosols [Ventolin Aerosols] 2.5 mg INHALATION Q4HWA.RT PRN 07/17/18 Primary Care Physician: Fareed Riley DO [Primary Care Provider] - Disposition: Against Medical Advice Medical Necessity - Tobacco Use Smoking Status: Current every day smoker Tobacco Use: Cigarettes Meaningful Use Info Meaningful Use Diagnoses (Choose all that apply): None applicable
--- NOTE | 2018-07-18 10:13 | NURSING ---
SHIFT ASSESSMENT DONE AT 0820- AP 100 & REGULAR. LUNGS CLEAR, ROOM AIR; HARSH, PRINTED FORMS PROOFREADER COUGH NOTED.BS HYPOACTIVE, STATES SMALL BM THIS AM. VERY AGITATED, C/O CARE & PERSONNEL AT [facility]. SWEARING, STATES I',M LEAVING. C/O PAIN IN BACK & RT LEG, 11/29, PRN MED GIVEN FOR RESTLESS LEGS. RT FOOT/ANKLE ERYTHEMIC/EDEMATOUS BUT INSIDE MARKED LINES. PUNCTURE SITES NOTED X2 - ONE AT [facility]KLE OOZING FLUID BUT REFUSES TO HAVE DRSG APPLIED. C/O NUMBNESS/TINGLING TO LT HAND/FINGERS, STATES SINCE YESTERDAY WHEN I WAS ADMITTED HERE.
== END 2018-07-18 08:59 | disposition left against medical advice (07) | DRG 872 ==
LOC: ED 15:21 → MS3 16:06
PROVIDERS: Admitting Provider Internal Medicine; Emergency Provider Emergency Medicine; Family Provider Family Medicine; PCP Family Medicine; Referring Provider Internal Medicine
DX: A41.9 Sepsis, unspecified organism (principal); L03.116 Cellulitis of left lower limb; E87.1 Hypo-osmolality and hyponatremia; B18.2 Chronic viral hepatitis C; G89.29 Other chronic pain; M54.9 Dorsalgia, unspecified; J44.9 Chronic obstructive pulmonary disease, unspecified; K21.9 Gastro-esophageal reflux disease without esophagitis; F32.9 Major depressive disorder, single episode, unspecified; G47.00 Insomnia, unspecified; F17.210 Nicotine dependence, cigarettes, uncomplicated; K70.30 Alcoholic cirrhosis of liver without ascites; T63.301A Toxic effect of unspecified spider venom, accidental (unintentional), initial encounter; S91.332A Puncture wound without foreign body, left foot, initial encounter
CPT/HCPCS: 36415; 80048; 83605; 85025; 87040; 99283; 99406; J7030; A4216; J2405

== ENCOUNTER → 2019-01-23 14:45 | Outpatient (CLI) | payer MEDICARE, SELFPAY ==
[2018-07-17 17:04] VITALS: BMI 21.5
--- NOTE | 2019-01-23 14:58 | MRI_ITS ---
We are attempting to reach an attending provider to discuss findings. An addendum with communication details will be sent when the communication is complete. STUDY: MRI ORBITS WITHOUT CONTRAST REASON FOR EXAM: Female, 63 years old. hemorrhage left eye post cataract surgery TECHNIQUE: Standardized multiplanar fat and water weighted pulse sequences were obtained. COMPARISON: None. FINDINGS: Exophthalmos on the left. Globe is intact. Retrobulbar mass is noted inferior to the optic nerve measuring 12 x 14 mm in AP and transverse dimensions. Local edema. Normal bilateral optic nerve sheath complexes and optic nerves. Normal bilateral extraocular muscles. Normal optic chiasm and post-chiasmatic tracts. Normal sella turcica, pituitary gland, infundibular stalk, and hypothalamus. Normal bilateral cavernous sinuses. Normal tectal plate and pineal gland. Normal flow voids within the major intracranial circulation suggesting patency by spin echo criteria. Normal size of the ventricles and extra-axial spaces for the patient's age. Normal white matter tracts of the supratentorial brain. Normal bilateral basal ganglia. Normal thalami. There is no extra-axial fluid accumulation. Normal midbrain, angela and medulla. Normal cerebellum. Normal basal cisterns. MRI/Orbit Face and Neck (Routine) IMPRESSION: Retrobulbar edema and mass consistent with hemorrhage Electronically Signed: Rich Teixeira MD at 16:50 EST , Service support ,
== END ==
PROVIDERS: Family Provider Family Medicine; PCP Family Medicine; Referring Provider Ophthalmology; Visit Provider Ophthalmology
DX: H46.12 Retrobulbar neuritis, left eye (principal); H05.232 Hemorrhage of left orbit
CPT/HCPCS: 70540

== ENCOUNTER → 2019-04-25 13:12 | Outpatient (CLI) | payer MEDICARE, SELFPAY ==
[2019-04-25 13:07] VITALS: BMI 21.5
--- NOTE | 2019-04-25 13:13 | RAD_ITS ---
STUDY: X-RAY - RIGHT WRIST REASON FOR EXAM: Medial wrist cyst. TECHNIQUE: 3 view(s) of the wrist were obtained. COMPARISON: None. FINDINGS: There is osteopenia. Normal visualized distal radius and ulna. There is joint space narrowing of the radiolunate articulation. Normal distal radioulnar articulation. Normal carpal bones. There is widening the scapholunate interval and DISI deformity. There are marginal osteophytes and joint space narrowing of the carpometacarpal articulation of the thumb. Normal second through fifth carpometacarpal articulations. Normal visualized metacarpal bones. There is an ossicle anterior to the distal radius. RAD/Wrist min 3 Views IMPRESSION: Widening of the scapholunate interval with DISI deformity. Arthrosis of the radiolunate articulation and first carpometacarpal articulation. Electronically Signed: Chris Gillespie MD at 13:40 EST Tel , Service support ,
== END ==
PROVIDERS: PCP Family Medicine; Referring Provider Orthopaedic Surgery; Visit Provider Orthopaedic Surgery
DX: M25.531 Pain in right wrist (principal)
CPT/HCPCS: 73110

== ENCOUNTER 2019-09-19 14:25 | Emergency (ER) | payer MEDICARE, MEDICAID, SELFPAY ==
[2019-05-02 14:29] VITALS: BMI 21.5
[2019-09-19 14:25] VITALS: BP 127/78; PULSE 88; RESP 18; TEMP 36.3; O2SAT 96; BMI 20.9
--- NOTE | 2019-09-19 14:42 | ED.DCSUM_ITS ---
- ER Visit Summary Date of Service: 09/19/19 Chief Complaint: Right wrist pain History of Present Illness: The patient is a 64 F who presents with right wrist pain that began 4 days ago. Patient states she was walking with her friend when he fell and grabbed on her right wrist and hand. Patient states her friend fell to the ground but she did not fall to the ground. Patient denies any head injury or loss of consciousness. Patient denies any paresthesias or weakness. Patient states she has been running her hand and wrist under hot water which has been helping somewhat. Patient states ice makes it worse. Patient states it is also worse with movement and with palpation. Patient admits to some tingling in her fingers. Patient denies any weakness. Physical Examination: Vital signs are stable. Patient is afebrile. Patient is in no acute distress. Musculoskeletal exam reveals diffuse tenderness over the right wrist and distal forearm. There is also some mild tenderness over the right hand. There is edema and ecchymosis noted. There are no deformities noted. Range of motion was limited in all motions of the right wrist and hand secondary to pain. There is no laxity appreciated. Radial pulses are equal bilaterally. Sensation was intact light touch in all digits. Capillary refill is less than 2 seconds in all digits. Test Results: X-rays of the right wrist were obtained. There is some widening of the scapholunate joint but there is no acute fracture. This was interpreted by the radiologist and reviewed by myself. Emergency Department Course and Treatment: Patient was given an injection of morphine here. Patient was placed in a Velcro wrist splint. Patient was instructed to ice and elevate the right wrist. Patient was instructed to use her oxycodone as needed for pain. Patient was instructed to follow-up with her primary care physician in 5 to 7 days. Patient understood and was agreeable with the plan. All questions were answered. Disposition: Discharge home Impression: Right wrist sprain This note was generated with [employer] dictation software. It may contain incorrect words, spelling, and punctuation that were not noted in review of the chart prior to signing ED Disposition - Plan for ED Patient: Disposition: Home or Assisted Living Diagnosis: Right wrist sprain Instructions: ED Sprain Wrist Referrals: Fareed Riley DO [Primary Care Provider] - 5-7 Days
[2019-09-19] MEDS: Morphine 4 MG/ML Syringe IM (15:02)
--- NOTE | 2019-09-19 15:06 | RAD_ITS ---
STUDY: X-RAY - RIGHT WRIST REASON FOR EXAM: Female, 64 years old. Pt states friend fell and pulled right wrist and heard pop. constant pain on anterior wrist, fingers numb and unable to move, pt states previous skin graft on right wrist TECHNIQUE: 3 view(s) of the wrist were obtained. COMPARISON: Comparison is made with prior examination dated 04/25/2019. FINDINGS: There is demineralization of the radius and ulna. Old avulsion fracture of the ulnar styloid. There is degenerative arthrosis of the radiocarpal articulation. Normal distal radioulnar articulation. Normal carpal bones. There is widening of the scapholunate articulation suggesting a sprain of the scapholunate interosseous ligament. There is evidence of DISI deformity of the carpal bones. This is stable. There is degenerative arthrosis of the carpometacarpal articulation of the thumb. Normal second through fifth carpometacarpal articulations. Normal visualized metacarpal bones. The soft tissue structures are unremarkable. RAD/Wrist min 3 Views IMPRESSION: Widening of the scapholunate interval with DISI deformity. Stable degenerative changes. Electronically Signed: Jose Villareal, at 15:35 EDT , Service support ,
[2019-09-19 15:57] VITALS: RESP 18
== END 2019-09-19 15:58 | disposition home or self-care (01) ==
PROVIDERS: Emergency Provider Emergency Medicine; PCP Family Medicine
DX: S63.501A Unspecified sprain of right wrist, initial encounter (principal); X58.XXXA Exposure to other specified factors, initial encounter; Y93.01 Activity, walking, marching and hiking; Y92.9 Unspecified place or not applicable; J44.9 Chronic obstructive pulmonary disease, unspecified; Z87.891 Personal history of nicotine dependence
CPT/HCPCS: 73110; 96372; 99283

== ENCOUNTER 2020-05-10 13:33 | Emergency (ER) | payer MEDICARE, MEDICAID, SELFPAY ==
[2020-05-10 13:34] VITALS: BP 164/93; PULSE 86; RESP 16; TEMP 36.7; O2SAT 98; BMI 23.4
--- NOTE | 2020-05-10 13:48 | RAD_ITS ---
STUDY: X-RAY - LEFT HAND REASON FOR EXAM: Female, 64 years old patient with left hand pain after injury. TECHNIQUE: 4 view(s) of the hand. COMPARISON: Radiographs of the left hand dated 12/29/2015. FINDINGS: There is joint space narrowing of the radiocarpal articulation consistent with degenerative arthrosis. There is a negative ulnar variant of the distal radioulnar articulation. There is diffuse demineralization of the carpal bones. Patient has had surgical resection of the trapezium. There are scattered lucencies within the carpal bones suggesting erosive changes. Normal carpal articulations Patient has had surgical resection of trapezium. There are degenerative and erosive changes at the proximal first metacarpal. Normal second through fifth carpometacarpal joints. There are erosive changes of the proximal second metacarpal. The metacarpals are osteopenic. There is degenerative arthrosis of the metacarpophalangeal (MCP) joints. Normal interphalangeal joint of the thumb. Normal proximal and distal phalanges of the thumb. Normal metacarpophalangeal joints of the second through fifth fingers. There is diffuse articular joint space narrowing of the proximal and distal interphalangeal joints of the second through fifth fingers, but without erosive changes or periarticular soft tissue swelling. Normal phalanges of the second through fifth fingers. There is diffuse soft tissue swelling of the hand and wrist. RAD/Hand Min 3 Views IMPRESSION: 1. Moderately severe soft tissue swelling. This may be secondary to infectious inflammatory process. 2. Osteoporosis. 3. Sequela of inflammatory arthropathy with postoperative changes of the thumb. Electronically Signed: Marisa Morfin MD at 15:18 EDT , Service support ,
--- NOTE | 2020-05-10 13:48 | RAD_ITS ---
STUDY: X-RAY - LEFT HUMERUS REASON FOR EXAM: Female, 64 years old patient with left arm injury and pain TECHNIQUE: 3 view(s) of the humerus. COMPARISON: None. FINDINGS: There is diffuse demineralization of the humerus. There is no demonstrated fracture or osseous destructive process. There are degenerative changes at the shoulder and elbow. There is soft tissue swelling at the elbow. RAD/Humerus min 2 Views IMPRESSION: 1. Degenerative arthropathy of the left shoulder and elbow. 2. No evidence for acute fracture of the humerus. Electronically Signed: Marisa Morfin MD at 15:22 EDT , Service support ,
--- NOTE | 2020-05-10 13:49 | ED.VIS.GEN ---
History of Present Illness Chief Complaint: Upper Extremity Injury Informant: Patient, Maintenance Painter Narrative: Patient states that 3 days ago she was trying to move some tire chains off of the wall barn and came down and struck her in her left hand. She states that she developed swelling and bruising of the head and distal wrist. She states that today she has developed pain on the outside of her humerus and that it seems to hurt worse with movement. She states her fingers are more swollen than they have been. Patient denies any tea colored urine. - Past Medical History (1) Chronic pain Status: Chronic (2) Depression Status: Chronic (3) Gastroesophageal reflux disease Status: Chronic (4) H/O chronic obstructive lung disease Status: Chronic (5) Hepatitis C Status: Chronic (6) Liver cirrhosis Status: Chronic Past Medical History - Allergies and Home Meds Allergies/Adverse Reactions: Allergies cyclobenzaprine HCl [From Flexeril] Allergy (Verified 05/10/20 13:35) Unknown nylon [Nylon 12] Allergy (Verified 05/10/20 13:35) Unknown BANDAIDS Allergy (Uncoded 05/10/20 13:35) Unknown Primary Care Physician: Fareed Riley DO [Primary Care Provider] - Surgical History: - Smoking Status: Current some day smoker Alcohol: Sober Drugs: None - Family History Maternal Family History: Reports: No pertinent history Paternal Family History: Reports: No pertinent history Review of Systems General: Denies: Chills, Fever, Sweats Eyes: Denies: Visual changes - bilaterally, Diplopia ENT: Denies: Rhinorrhea, Sore throat Cardiovascular: Denies: Chest pain, Palpitations Respiratory: Denies: Dyspnea, Cough, Dyspnea on exertion Gastrointestinal: Denies: Abdominal pain, Nausea, Vomiting, Diarrhea, Melena, Hematochezia Genitourinary: Denies: Dysuria, Hematuria, Frequency Musculoskeletal: Reports: Swelling, Extremity Pain. Denies: Back pain Skin: Denies: Rash, Wounds Neurological: Denies: Headache, Weakness, Numbness Physical Exam Vital Signs/Narrative: Vital Signs Temp Pulse Resp BP Pulse Ox 05/10/20 13:34 98.0 F 86 16 164/93 H 98 Inital Vital Signs reviewed: Yes General: Well nourished, Well developed, No Acute Distress Head: Normocephalic, Atraumatic Eyes: Perrl, EOMI ENT: Moist mucous membranes, No rhinorrhea Neck: Supple, Nontender Cardiovascular: Regular rate, Regular rhythm, No murmurs Respiratory: No distress, CTA bilaterally, Chest nontender Abdomen: Soft, Nontender, Nondistended, Normal bowel sounds Back: Nontender, Normal Inspection Extremities: Tenderness - Tenderness swelling and ecchymosis of the right hand and distal wrist. Patient has pain laterally over the distal humerus. There is not appear to be any swelling of the forearm or arm. No tenderness along the brachial vein and artery to the medial aspect. No palpable cords. Decre range of motio Skin: Normal color, No rash Neurological: Alert, Oriented x3, Cranial nerves II-XII grossly intact, Normal Strength, Normal Sensation Psychological: Normal affect, Normal Mood Diagnostic/Tx/Re-eval Clinical Impression(s) from Imaging Studies Hand X-Ray 05/10/20 13:48 IMPRESSION: 1. Moderately severe soft tissue swelling. This may be secondary to infectious inflammatory process. 2. Osteoporosis. 3. Sequela of inflammatory arthropathy with postoperative changes of the thumb. Electronically Signed: Marisa Morfin MD at 15:18 EDT , Service support , Humerus X-Ray 05/10/20 13:48 IMPRESSION: 1. Degenerative arthropathy of the left shoulder and elbow. 2. No evidence for acute fracture of the humerus. Electronically Signed: Marisa Morfin MD at 15:22 EDT , Service support , Forearm X-Ray 05/10/20 14:07 IMPRESSION: Soft tissue swelling without definite evidence for acute fracture. If there is still clinical concern for acute fracture, follow-up radiographs in 7-10 days maybe helpful in evaluating a healing radiographically occult fracture. Electronically Signed: Marisa Morfin MD at 15:14 EDT , Service support , - Medical Decision Making My interpretation of the plain films of the left hand left forearm and left humerus are no acute fracture. Soft tissue swelling noted. Duplex ultrasound is not available today. I can write an order for her to have one performed as an outpatient. She has oxycodone at home that she takes 15 mg 4 times a day. I am going to write for Valium. I'll have her use a sling for when she is up and moving. The patient was encouraged to try to not use the sling. If she is resting I would like her to elevate the arm and move her fingers and wrist. Advised her she needs to follow-up with her doctor in the next several days. ED Disposition - Plan for ED Patient: Disposition: Home or Assisted Living Diagnosis: Contusion of left hand, Swelling of left hand Instructions: ED Hand Contusion, ED Peripheral Edema, Unilateral Prescriptions: Diazepam [Valium] 2 mg PO TID PRN PRN #10 tablet PRN Reason: Vertigo Transmission Status: Received by [id number] Referrals: Fareed Riley DO [Primary Care Provider] - 3-5 Days Additional Instructions: You need to have a duplex ultrasound of your arm performed tomorrow to ensure there is no blood clot.
[2020-05-10] MEDS: oxyCODONE 5 MG Tablet 10 MG PO (13:53)
--- NOTE | 2020-05-10 14:07 | RAD_ITS ---
STUDY: X-RAY - LEFT RADIUS AND ULNA REASON FOR EXAM: Female, 64 years old patient with left-sided forearm injury and pain TECHNIQUE: AP and lateral view(s) of the forearm. COMPARISON: Prior comparable comparison studies are not available for review at this time. FINDINGS: There is diffuse soft tissue swelling of the forearm and wrist. There is diffuse demineralization of the osseous structures. Normal visualized radius. Normal visualized ulna. There is ulnar minus variant. There are erosive and degenerative changes at the radiocarpal articulation. There are moderately severe degenerative changes at the proximal first metacarpal. The patient has had surgical removal of the trapezium. There are moderately severe degenerative changes at the elbow. There appears to be intra-articular loose body at the elbow. RAD/Forearm 2 Views IMPRESSION: Soft tissue swelling without definite evidence for acute fracture. If there is still clinical concern for acute fracture, follow-up radiographs in 7-10 days maybe helpful in evaluating a healing radiographically occult fracture. Electronically Signed: Marisa Morfin MD at 15:14 EDT , Service support ,
[2020-05-10 15:58] VITALS: BP 138/77; PULSE 84; RESP 19; O2SAT 95
== END 2020-05-10 15:59 | disposition home or self-care (01) ==
PROVIDERS: Emergency Provider Emergency Medicine; PCP Family Medicine
DX: S60.222A Contusion of left hand, initial encounter (principal); W20.8XXA Other cause of strike by thrown, projected or falling object, initial encounter; Y93.89 Activity, other specified; Y92.71 Barn as the place of occurrence of the external cause; Y99.9 Unspecified external cause status; M81.0 Age-related osteoporosis without current pathological fracture; J44.9 Chronic obstructive pulmonary disease, unspecified; F17.200 Nicotine dependence, unspecified, uncomplicated; Z79.899 Other long term (current) drug therapy
CPT/HCPCS: 73060; 73090; 73130; 99285

== ENCOUNTER → 2020-05-12 13:58 | Outpatient (CLI) | payer MEDICARE, MEDICAID, SELFPAY ==
[2020-05-10 13:34] VITALS: BMI 23.4
--- NOTE | 2020-05-12 14:02 | VDUE_ITS ---
Reason For Study: swelling Left Proximal Left jugular vein is spontaneous, widely patent, phasic, with no intraluminal echogenicity noted. Left subclavian vein is spontaneous, widely patent, phasic, with no intraluminal echogenicity noted. Left Arm Left axillary vein is spontaneous, patent, phasic, competent, compressible and demonstrates augmentation. Left brachial vein is compressible. Left cephalic vein is compressible. Left basilic vein is compressible. Left Lower Arm Left radial vein is compressible. Left ulnar vein is compressible. Interpretation Summary Deep veins of the left upper extremity are patent and compressible segmentally. There is no evidence of deep vein thrombosis. The superficial veins of the left upper extremity, the basilic and cephalic veins, are patent and compressible. There is no evidence of left upper extremity superficial thrombophlebitis involving the veins imaged. Ordering Physician: Hans Mcintosh Performed By: Jose Martin Sung RVT ?
== END ==
PROVIDERS: PCP Family Medicine; Referring Provider Emergency Medicine; Visit Provider Emergency Medicine
DX: R22.32 Localized swelling, mass and lump, left upper limb (principal)
CPT/HCPCS: 93971

== ENCOUNTER → 2021-06-15 | Outpatient (CLI) | payer MEDICARE, MEDICAID, SELFPAY ==
[2021-06-15 16:15] LABS: ALB/GLOB Ratio 0.9 RATIO (0.9-2.4); AST(SGOT) 14 U/L (15-37); Alanine Aminotransfer ALT/SGPT 17 U/L (13-56); Albumin, Serum 3.8 g/dL (3.2-5.0); Alkaline Phosphatase 87 U/L (45-117); Anion Gap 7 (5-15); BUN 14 mg/dL (7-18); BUN/Creat Ratio 19.4 RATIO (10-20); Calcium,Total 9.5 mg/dL (8.5-10.1); Chloride 96 mmol/L (98-107); Cholesterol 168 mg/dL (200); Creatinine, Serum 0.72 mg/dL (0.55-1.02); EST Glomerular Filtration Rate 87 mL/min (>60); Est Glom Filt Rate - Afr Amer 105 mL/min (>60); Globulin 4.3 g/dL (2.2-4.2); Glucose 113 mg/dL (74-106); High Density Lipoprotein 63 mg/dL; Potassium 3.5 mmol/L (3.5-5.1); Protein, Total 8.1 g/dL (6.4-8.2); Sodium Level 134 mmol/L (136-145); Triglycerides 68 mg/dL; Very Low Density Lipoprotein 14 mg/dL (5-40)
== END | disposition home or self-care (01) ==
LOC: LAB 13:54
PROVIDERS: PCP Family Medicine; Visit Provider Family Medicine
DX: Z00.00 Encounter for general adult medical examination without abnormal findings (principal)
CPT/HCPCS: 36415; 80053; 80061

== ENCOUNTER 2021-10-14 17:44 | Emergency (ER) | payer MEDICARE, MEDICAID, SELFPAY ==
[2021-10-14 17:47] VITALS: BP 131/95; PULSE 81; RESP 18; TEMP 36.1; O2SAT 93; BMI 21.7
--- NOTE | 2021-10-14 18:49 | EDS_ITS ---
HPI History of Present Illness Chief Complaint: Dizziness Informant: patient Narrative Narrative: 3-day history nontraumatic headache subjective fevers nonproductive cough nausea and vomiting. No diarrhea. States vomiting too many to count. 5 times a day. No hematemesis. Abdominal pain due to vomiting. History of COPD. History of alcoholic cirrhosis. Hep C. Nonvaccinated for COVID no infections in the past. Reports photophobia phonophobia, denies aura. Allergy to Flexeril. Denies any urinary symptoms. Prior similar symptoms: No PFSH PFSH Medical History COPD (chronic obstructive pulmonary disease) Home Medications oxycodone 15 mg tablet 15 mg PO 4X/DAY 11/10/13 [History Last Taken Unknown] budesonide-formoterol HFA 160 mcg-4.5 mcg/actuation aerosol inhaler 2 puff inhalation BID 05/10/20 [History Last Taken Unknown] diazepam 2 mg tablet 2 mg PO TID PRN PRN Vertigo #10 TABLETS 05/10/20 [Rx Last Taken Unknown] nirmatrelvir 300 mg (150 mg x2)-ritonavir 100 mg tablet,dose pack(EUA) (Paxlovid) See Rx Instructions PO .COMPLEX #30 tabs 10/14/21 [Rx Last Taken Unknown] ondansetron 4 mg disintegrating tablet 4 mg PO Q6H PRN nausea and vomiting #10 tabs 10/14/21 [Rx Last Taken Unknown] potassium chloride 20 mEq tablet,extended release 20 meq PO DAILY #7 tabs 10/14/21 [Rx Last Taken Unknown] Allergy/AdvReac Type Severity Reaction Status Date / Time adhesive Allergy NEEDS Verified 10/14/21 17:50 FOLLOW-UP cyclobenzaprine HCl Allergy Unknown Verified 10/14/21 17:50 [From Flexeril] nylon [Nylon 12] Allergy Unknown Verified 10/14/21 17:50 Social History Smoking Status: Current some day smoker tobacco type: cigarettes ROS ROS ED Constitutional Constitutional ED: Reports fever(s); Denies chills or sweats Eyes Eyes: Denies change in vision ENT ENT ED: Denies dysphagia or sore throat Cardiovascular Cardiovascular: Denies chest pain, leg edema, palpitations or racing heartbeat Respiratory/Chest Respiratory/Chest: Reports cough; Denies dyspnea or dyspnea on exertion Gastrointestinal Gastrointestinal: Reports abdominal pain, nausea and vomiting; Denies diarrhea Genitourinary Genitourinary ED: Denies dysuria, hematuria or urinary frequency Musculoskeletal Musculoskeletal: Denies back pain, extremity pain or neck pain Integumentary Denies rash or wounds Neurologic Neurologic: Reports headache(s); Denies paresthesias or weakness EXAM Physical Exam Const Vital Signs: 10/14/21 17:47 10/14/21 18:41 10/14/21 21:06 Temperature 97.0 F L Temperature Source Temporal Pulse Rate 81 74 Respiratory Rate 18 18 Respiratory Effort Normal Respiratory Pattern Normal Blood Pressure 131/95 H 132/90 H Blood Pressure Mean 107 104 Pulse Ox 93 95 Oxygen Delivery Method Room Air Room Air Positive well nourished and well developed General Appearance ED: well developed and NAD HEENT Reports dry mucous membranes normocephalic and atraumatic Mouth ED: Yes dry mucous membranes Mouth: dry mucous membranes Eyes PERRL, EOMs intact bilaterally and conjunctivae normal General Eye ED: Yes normal appearance of both eyes Neck no lymphadenopathy and supple Neck Narrative: No meningismus General: Negative for tenderness Chest Wall Chest: Negative for tenderness Resp normal respiratory effort and normal air movement Effort and Inspection: symmetric chest movement; Negative for respiratory distress Cardio regular rate, regular rhythm and no murmurs Peripheral Pulses: pulses 2+ throughout GI normal to inspection, nondistended, normoactive bowel sounds GI Narrative: Mild mid abdominal tenderness without guarding or rebound. Negative Segovia's or McBurney's tenderness. Palpation: Negative for guarding or rebound tenderness present Back/Spine no CVA tenderness and no thoracic nor lumbar tenderness Extremity normal to inspection General Extremety ED: Negative for edema or tenderness General Extremity: Negative for edema Neuro oriented x3, CN's II-XII intact bilaterally and no sensory deficits noted Sensorium / Orientation: awake and alert Skin no rashes or lesions noted and no wounds MDM MDM MDM Narrative Medical decision making narrative: Patient nontoxic. No meningismus no focal deficits. With her headache symptoms treated with fluids Reglan Benadryl. Labs obtained white count 5 hemoglobin 15.9 potassium 2.7 creatinine 0.91. Lipase normal liver enzymes AST at 58. COVID testing returned positive. She is day 3 of symptoms. She is feeling better on reevaluation she is tolerating p.o. intake and oral potassium. I discussed treatment with the patient. She has history of cirrhosis, however her labs are stable renal function is normal from her evaluation of the medication they report precautions with taking Paxlovid however there is no direct contraindication. She is given prescription for this. Prescription for additional potassium over 7 days. Prescription for Zofran. Return precautions. All questions were answered. Lab Data Attestation: I reviewed the patient's lab results. Labs: Laboratory Results - last 24 hr 10/14/21 10/14/21 19:20 19:20 WBC 5.0 RBC 5.56 H Hgb 15.9 H Hct 46.4 MCV 83.5 MCH 28.6 MCHC 34.3 RDW Std Deviation 47.8 H RDW Coeff of [place] 15.6 H Plt Count 190 MPV 10.7 Immature Gran % (Auto) 0.400 Neut % (Auto) 71.0 H Lymph % (Auto) 15.0 L [place] % (Auto) 13.4 H Eos % (Auto) 0.0 Baso % (Auto) 0.2 Absolute Neuts (auto) 3.6 Absolute Lymphs (auto) 0.75 L Nucleated RBC % 0 Sodium 133 L Potassium 2.7 L* Chloride 90 L Carbon Dioxide 34.0 H Anion Gap 9 BUN 21 H Creatinine 0.91 Estim Creat Clear Calc 58.47 Est GFR (MDRD) Af Amer 80 Est GFR (MDRD) Non-Af 66 BUN/Creatinine Ratio 23.2 H Glucose 89 Calcium 9.6 Total Bilirubin 0.40 AST 58 H ALT 27 Alkaline Phosphatase 85 Total Protein 8.6 H Albumin 3.8 Globulin 4.8 H Albumin/Globulin Ratio 0.8 L Lipase 140 Radiography Diagnostic Testing: Clinical Impression(s) from Imaging Studies Chest X-Ray 10/14/21 19:25 IMPRESSION: Stable hyperexpansion. No focal infiltrate Electronically Signed: García Orona MD at 21:02 EDT , Discharge Plan Triage Chief Complaint: Dizziness ED Provider: Micheal Greene Dx/Rx/DC Orders Clinical Impression: COVID-19, Headache, Vomiting, Acute hypokalemia, Liver cirrhosis Instructions: Coronavirus Disease 2019 (COVID-19): Caring for Yourself or Others, ED Hypokalemia, ED Vomiting (Adult) Prescriptions: New ondansetron 4 mg tablet,disintegrating 4 mg PO Q6H PRN (Reason: nausea and vomiting) Qty: 10 0RF Paxlovid (EUA) 300 mg (150 mg x 2)-100 mg tablets,dose pack See Rx Instructions .ROUTE .COMPLEX Qty: 30 0RF Rx Instructions: take TWO 150 mg tablets of nirmatrelvir with ONE 100 mg tablet of ritonavir twice daily for 5 days potassium chloride 20 mEq tablet extended release 20 meq PO DAILY Qty: 7 0RF No Action oxycodone 15 MG tablet 15 mg PO 4X/DAY Label Comments: budesonide-formoterol 1 INHALER inhaler 2 puff INHALATION BID diazepam 2 MG tablet 2 mg PO TID PRN PRN (Reason: Vertigo) Qty: 10 0RF Primary Care Provider: Fareed Riley Referrals: Fareed Riley DO [Primary Care Provider] - 5-7 Days Disposition Disposition: Home, Self Care Discharge Date/Time: 10/14/21 21:18
[2021-10-14] MEDS: DiphenhydrAMINE 50 MG/ML Syringe 25 MG IV (19:18)
[2021-10-14] MEDS: 0.9% Normal Saline 1,000 ML 1000 ML IV (19:18)
[2021-10-14] MEDS: Metoclopramide 10 MG/2 ML Vial IV (19:18)
--- NOTE | 2021-10-14 19:25 | RAD_ITS ---
STUDY: X-RAY CHEST REASON FOR EXAM: Female, 66 years old. Cough TECHNIQUE: Single AP portable view of the chest. COMPARISON: March 11, 2016 FINDINGS: The lungs are clear and hyperexpanded. There is no demonstrated pleural abnormality. Normal size heart. Normal mediastinum and elroy. Normal visualized pulmonary arteries. Normal visualized aortic arch and descending thoracic aorta. Normal visualized thoracic spine. Normal visualized ribs, clavicles, and shoulders. There is no demonstrated abnormality of the visualized soft tissue structures of the upper abdomen. RAD/Chest 1 View (Portable) IMPRESSION: Stable hyperexpansion. No focal infiltrate Electronically Signed: García Orona MD at 21:02 EDT ,
[2021-10-14 19:36] LABS: Absolute Lymphocyte Count 0.75 X10^3/uL (0.83-4.51); Absolute Neutrophil Count 3.6 X10^3/uL (2.0-7.7); Basophil# 0.01 X10^3/uL; Basophil% 0.2 % (0-1); Hematocrit 46.4 % (37-47); Hemoglobin 15.9 g/dL (12.0-15.0); Lymphocyte # 0.75 X10^3/ul (0.83-4.51); Mean Corp Hgb Conc 34.3 g/dL (32-36); Mean Corpuscular Hgb 28.6 pg (27.0-32.0); Mean Corpuscular Volume 83.5 fL (81-99); Mean Platelet Vol. 10.7 fl (6.2-12.0); Monocyte# 0.67 X10^3/uL; Monocyte% 13.4 % (0-10); NRBC Flagged by Analyzer 0 % (0-5); Neutrophil # 3.56 X10^3/uL (2.7-7.7); Platelet Count 190 K/mm3 (150-450); RBC Distribution Width CV 15.6 % (11.6-14.6); RBC Distribution Width SD 47.8 fl (35.1-43.9); Red Blood Count 5.56 M/mm3 (4.2-5.4)
[2021-10-14 20:00] LABS: ALB/GLOB Ratio 0.8 RATIO (0.9-2.4); AST(SGOT) 58 U/L (15-37); Alanine Aminotransfer ALT/SGPT 27 U/L (13-56); Albumin, Serum 3.8 g/dL (3.2-5.0); Alkaline Phosphatase 85 U/L (45-117); Anion Gap 9 (5-15); BUN 21 mg/dL (7-18); BUN/Creat Ratio 23.2 RATIO (10-20); Calcium,Total 9.6 mg/dL (8.5-10.1); Chloride 90 mmol/L (98-107); Creatinine, Serum 0.91 mg/dL (0.55-1.02); EST Glomerular Filtration Rate 66 mL/min (>60); Est Glom Filt Rate - Afr Amer 80 mL/min (>60); Estimated Creatinine Clearance 58.47 ml/min; Globulin 4.8 g/dL (2.2-4.2); Glucose 89 mg/dL (74-106); Lipase 140 U/L (73-393); Potassium 2.7 mmol/L (3.5-5.1); Protein, Total 8.6 g/dL (6.4-8.2); Sodium Level 133 mmol/L (136-145)
[2021-10-14] MEDS: Potassium Chloride Oral Tablet 20 MEQ 40 MEQ PO (21:04)
[2021-10-14 21:06] VITALS: BP 132/90; PULSE 74; RESP 18; O2SAT 95
== END 2021-10-14 21:18 | disposition home or self-care (01) ==
PROVIDERS: Emergency Provider Emergency Medicine; PCP Family Medicine; Visit Provider Emergency Medicine
DX: U07.1 COVID-19 (principal); K70.30 Alcoholic cirrhosis of liver without ascites; J44.9 Chronic obstructive pulmonary disease, unspecified; E87.6 Hypokalemia; F17.210 Nicotine dependence, cigarettes, uncomplicated; Z79.899 Other long term (current) drug therapy
CPT/HCPCS: 71045; 80053; 83690; 85025; 87811; 96361; 96374; 96375; 99283; J7030; A4216

== ENCOUNTER 2022-04-11 17:04 | Emergency (ER) | payer MEDICARE, MEDICAID, SELFPAY ==
[2022-04-11 17:05] VITALS: BP 162/79; PULSE 79; RESP 14; TEMP 36.6; O2SAT 97; BMI 20.8
--- NOTE | 2022-04-11 18:12 | ED.RN ---
[facility] BEEN HERE AN HOUR AND A HALF, IM GOING TO [place].
== END 2022-04-11 18:09 | disposition left against medical advice (07) ==
LOC: ED 18:13
PROVIDERS: PCP Family Medicine
DX: Z53.21 Procedure and treatment not carried out due to patient leaving prior to being seen by health care provider (principal)

== ENCOUNTER 2022-05-10 14:38 | Emergency (ER) | payer MEDICARE, MEDICAID, SELFPAY ==
[2022-05-10 14:39] VITALS: BP 190/109; PULSE 108; RESP 18; TEMP 36.3; O2SAT 93; BMI 22.1
[2022-05-10 14:47] VITALS: PULSE 72; RESP 18
--- NOTE | 2022-05-10 15:28 | VDLE_ITS ---
Reason For Study: LEG SWELLING RIGHT LEFT GSV is normal. GSV is normal. CFV is compressible, spontaneous, phasic, CFV is compressible, spontaneous, phasic, competent and demonstrates normal competent, and demonstrates normal augmentation. augmentation. FV is compressible, spontaneous, phasic, FV is compressible, spontaneous, phasic, competent and demonstrates normal competent and demonstrates normal augmentation. augmentation. POP V is compressible, spontaneous, phasic, POP V is compressible, spontaneous, phasic, competent and demonstrates normal competent and demonstrates normal augmentation. augmentation. T/P Trunk is compressible. T/P Trunk is compressible. PTV is compressible. PTV is compressible. RT PerV is compressible. LT PerV is compressible. A Non-vascularized anechoic structure measuring approximately 6.07cm x 1.03cm is noted in the Rt popliteal space. Procedure This is a venous duplex using B-mode, color flow and spectral Doppler. Exam performed portable in ED. The exam was diagnostic. A preliminary report was called and/or faxed to Dr. Perez. VL/Venous Duplex US - Tee Extrem Interpretation Summary No evidence for acute deep venous thrombosis bilateral lower extremities with p atent and compressible bilateral great saphenous veins. Nonvascular right popliteal space 6.07 x 1.03 cm anechoic structure. Clinical correlation would be appropriate. Ordering Physician: Duane Perez Referring Physician: Fareed Riley Performed By: Quique Alva, DEE
--- NOTE | 2022-05-10 15:30 | EDS_ITS ---
HPI History of Present Illness Chief Complaint: General Illness Informant: patient Narrative Narrative: Patient tells me her reason for coming today is edema of both feet. She states the edema has been going on about 2 or so months. She saw her doctor a while ago. He did blood work including liver and kidney and everything was normal. He started her on an unknown diuretic. It helped a little bit but does not resolve it. After extensive questioning I also find out presents. 1 is blue and one is yellow but she does not know the name of these. These were started about the same time as her symptoms started. She did also fall yesterday because she tripped when she caught her toe. She hit her right back and she has a lump back there. She is not on blood thinners. She has baseline dyspnea and severe COPD but states it is no different than normal in the fall did not affect her breathing. She never hit her head. She has 1 spot that is a little sore. She has not been having fevers or chills. She has been eating and drinking normally. [facility] Medical History COPD (chronic obstructive pulmonary disease) Home Medications oxycodone 15 mg tablet 15 mg PO 4X/DAY 11/10/13 [History Last Taken Unknown] budesonide-formoterol HFA 160 mcg-4.5 mcg/actuation aerosol inhaler 2 puff inhalation BID 05/10/20 [History Last Taken Unknown] diazepam 2 mg tablet 2 mg PO TID PRN PRN Vertigo #10 TABLETS 05/10/20 [Rx Last Taken Unknown] nirmatrelvir 300 mg (150 mg x2)-ritonavir 100 mg tablet,dose pack(EUA) (Paxlovid) See Rx Instructions PO .COMPLEX #30 tabs 10/14/21 [Rx Last Taken Unknown] ondansetron 4 mg disintegrating tablet 4 mg PO Q6H PRN nausea and vomiting #10 t abs 10/14/21 [Rx Last Taken Unknown] potassium chloride 20 mEq tablet,extended release 20 meq PO DAILY #7 tabs 10/14/21 [Rx Last Taken Unknown] Allergy/AdvReac Type Severity Reaction Status Date / Time adhesive Allergy NEEDS Verified 05/10/22 14:41 FOLLOW-UP cyclobenzaprine HCl Allergy Unknown Verified 05/10/22 14:41 [From Flexeril] nylon [Nylon 12] Allergy Unknown Verified 05/10/22 14:41 Social History Smoking Status: Current some day smoker tobacco type: cigarettes ROS ROS ED Constitutional Constitutional ED: Denies chills, fever(s), subjective, sweats or weight loss Eyes Eyes: Denies change in vision ENT ENT ED: Denies rhinorrhea or sore throat Cardiovascular Cardiovascular: Denies chest pain, palpitations or racing heartbeat Respiratory/Chest Respiratory/Chest: Denies cough or dyspnea Gastrointestinal Gastrointestinal: Denies abdominal pain, diarrhea, nausea or vomiting Genitourinary Genitourinary ED: Denies dysuria Musculoskeletal Musculoskeletal: Reports other Details: Sore area near her right scapula. This occurred with a fall last night. Integumentary Denies rash Neurologic Neurologic: Denies headache(s) Psychiatric Psychiatric: Reports depression Hematologic/Lymphatic Hematologic/Lymphatic: Denies easy bleeding or easy bruising Allergic/Immunologic Allergic/Immunologic ED: Denies urticaria EXAM Physical Exam Narrative Exam Narrative: Patient is awake alert. She is sitting comfortably in bed. No acute distress. Is on normal conversation. HEENT shows no sign of trauma. Mucous membranes are moist Eyes show no icterus Neck is supple without JVD. Chest is clear bilaterally. Despite her history of COPD I am not hearing any wheezing. She does have a slightly swollen area on her back right at the lower tip of the scapula. This appears to be soft tissue but it is slightly tender and it is the area where she hit last night. Heart is regular. I hear no murmur. Peripheral pulses are normal. Abdomen soft nontender There is no CVA or suprapubic tenderness on exam Extremities show some mild edema although its not really pitting. This starts at the lower third of the tib-fib and involves both feet. No sign of infection. Neurologically she is awake alert and appropriate. Const Vital Signs: 05/10/22 14:39 05/10/22 14:47 05/10/22 16:55 Temperature 97.4 F L Temperature Source Temporal Pulse Rate 108 H 72 Respiratory Rate 18 18 18 Blood Pressure 190/109 H Blood Pressure Mean 136 Pulse Ox 93 Oxygen Delivery Method Room Air Room Air MDM MDM MDM Narrative Medical decision making narrative: My independent interpretation the patient's two-view scapula films show no fracture. Final reading is similar. My independent interpretation of the patient's single view but to image chest x-ray shows chronic COPD changes but no acute process. This is also similar to final reading. Patient's ultrasound showed no sign of DVT. CBC is overall normal. Electrolytes are overall normal. Mild dehydration but this is likely due to being on a diuretic. BNP is normal. Liver function test are overall relatively normal. Although the patient cannot recall the antidepressant medicine she is on, they are likely SSRI or SNRI. There are some of these that are associated with edema. Her symptoms started about this time when she started the meds. This may very well be the issue. I have told her she should contact her physician about stopping these meds or maybe substituting and seeing if her symptoms resolved. Lab Data Labs: Laboratory Results - last 24 hr 05/10/22 05/10/22 05/10/22 16:12 16:12 16:12 WBC 9.8 RBC 4.87 Hgb 13.8 Hct 43.9 MCV 90.1 MCH 28.3 MCHC 31.4 L RDW Std Deviation 49.0 H RDW Coeff of Randolph 14.8 H Plt Count 272 MPV 10.2 Immature Gran % (Auto) 0.300 Neut % (Auto) 66.3 Lymph % (Auto) 16.2 L Pope % (Auto) 10.1 H Eos % (Auto) 6.5 H Baso % (Auto) 0.6 Absolute Neuts (auto) 6.5 Absolute Lymphs (auto) 1.58 Nucleated RBC % 0 Sodium 137 Potassium 3.7 Chloride 97 L Carbon Dioxide 36.0 H Anion Gap 4 L BUN 15 Creatinine 0.72 Estim Creat Clear Calc 73.90 Est GFR (MDRD) Af Amer 104 Est GFR (MDRD) Non-Af 86 BUN/Creatinine Ratio 20.7 H Glucose 100 Calcium 9.9 Total Bilirubin 0.40 AST 20 ALT 18 Alkaline Phosphatase 93 B-Natriuretic Peptide 81.9 Total Protein 8.7 H Albumin 4.3 Globulin 4.4 H Albumin/Globulin Ratio 1.0 Radiography Diagnostic Testing: Clinical Impression(s) from Imaging Studies Venous Doppler Study 05/10/22 15:28 Interpretation Summary No evidence for acute deep venous thrombosis bilateral lower extremities with patent and compressible bilateral great saphenous veins. Nonvascular right popliteal space 6.07 x 1.03 cm anechoic structure. Clinical correlation would be appropriate. Ordering Physician: Duane Perez Referring Physician: Fareed Riley Performed By: Quique Alva, T Scapula X-Ray 05/10/22 16:15 IMPRESSION: Degenerative changes of the shoulder without evidence of scapular fracture. Electronically Signed: Reji Chen DO at 16:42 EDT , Chest X-Ray 05/10/22 16:20 IMPRESSION: No acute radiographic abnormalities. Electronically Signed: Atilio Blanc MD at 17:58 EDT , EKG Initial EKG: Comments: My independent interpretation the patient's EKG shows a normal sinus rhythm with overall rate of 61. Nonspecific ST changes but no sign of acute infarct. No ventricular ectopy. Mild baseline variation. No dysrhythmia such as atrial fibrillation. MN interval, QRS duration and QTc are normal. Discharge Plan Triage Chief Complaint: General Illness ED Provider: Duane Perez Dx/Rx/DC Orders Clinical Impression: Peripheral edema, liver cirrhosis - etoh hep C, Fall at home, Contusion of back, Medication side effect Instructions: ED Lymphedema Prescriptions: No Action oxycodone 15 MG tablet 15 mg PO 4X/DAY Label Comments: budesonide-formoterol 1 INHALER inhaler 2 puff INHALATION BID diazepam 2 MG tablet 2 mg PO TID PRN PRN (Reason: Vertigo) Qty: 10 0RF ondansetron 4 mg tablet,disintegrating 4 mg PO Q6H PRN (Reason: nausea and vomiting) Qty: 10 0RF Paxlovid (EUA) 300 mg (150 mg x 2)-100 mg tablets,dose pack See Rx Instructions .ROUTE .COMPLEX Qty: 30 0RF Rx Instructions: take TWO 150 mg tablets of nirmatrelvir with ONE 100 mg tablet of ritonavir twice daily for 5 days potassium chloride 20 mEq tablet extended release 20 meq PO DAILY Qty: 7 0RF Primary Care Provider: Fareed Riley Referrals: Fareed Riley, [Primary Care Provider] - As soon as possible Disposition Disposition: Home, Self Care
--- NOTE | 2022-05-10 16:15 | RAD_ITS ---
STUDY: X-RAY - RIGHT SCAPULA REASON FOR EXAM: Female, 66 years old. Dizziness with shortness of breath for a week. Fell last night with subsequent back pain. TECHNIQUE: 2 view(s) of the scapula were obtained. COMPARISON: Right shoulder, August 19, 2013. FINDINGS: Normal scapula, including the osseous glenoid rim, acromion, scapular neck, spine, coracoid process, and visualized body. There is cephalad migration of the humeral head consistent with rotator cuff pathology. There is marked degenerative change. Humeral head appears intact in PACS along the underside of the acromium. Normal visualized pulmonary apex. The soft tissues appear normal. RAD/Scapula IMPRESSION: Degenerative changes of the shoulder without evidence of scapular fracture. Electronically Signed: Reji Chen DO at 16:42 EDT ,
--- NOTE | 2022-05-10 16:20 | RAD_ITS ---
INDICATION: Trauma EXAMINATION/TECHNIQUE: X-RAY - XR Chest 1 View COMPARISON: 10/14/2021. FINDINGS: The lungs are clear. Tortuous and calcified thoracic aorta. The heart is not enlarged. No pleural effusion or pneumothorax. Degenerative changes of the thoracic spine and shoulders. RAD/Chest 1 View (Portable) IMPRESSION: No acute radiographic abnormalities. Electronically Signed: Atilio Blanc MD at 17:58 EDT ,
[2022-05-10 16:22] LABS: Absolute Lymphocyte Count 1.58 X10^3/uL (0.83-4.51); Absolute Neutrophil Count 6.5 X10^3/uL (2.0-7.7); Basophil# 0.06 X10^3/uL; Basophil% 0.6 % (0-1); Eosinophil# 0.63 X10^3/uL; Eosinophils% 6.5 % (0-5); Hematocrit 43.9 % (37-47); Hemoglobin 13.8 g/dL (12.0-15.0); Lymphocyte # 1.58 X10^3/ul (0.83-4.51); Lymphocyte % 16.2 % (19-41); Mean Corp Hgb Conc 31.4 g/dL (32-36); Mean Corpuscular Hgb 28.3 pg (27.0-32.0); Mean Corpuscular Volume 90.1 fL (81-99); Mean Platelet Vol. 10.2 fl (6.2-12.0); Monocyte# 0.98 X10^3/uL; Monocyte% 10.1 % (0-10); NRBC Flagged by Analyzer 0 % (0-5); Neutrophil # 6.47 X10^3/uL (2.7-7.7); Neutrophil % 66.3 % (47-70); Platelet Count 272 K/mm3 (150-450); RBC Distribution Width CV 14.8 % (11.6-14.6); Red Blood Count 4.87 M/mm3 (4.2-5.4); White Blood Count 9.8 K/mm3 (4.4-11.0)
[2022-05-10 16:39] LABS: AST(SGOT) 20 U/L (15-37); Alanine Aminotransfer ALT/SGPT 18 U/L (13-56); Albumin, Serum 4.3 g/dL (3.2-5.0); Alkaline Phosphatase 93 U/L (45-117); Anion Gap 4 (5-15); BUN 15 mg/dL (7-18); BUN/Creat Ratio 20.7 RATIO (10-20); Calcium,Total 9.9 mg/dL (8.5-10.1); Chloride 97 mmol/L (98-107); Creatinine, Serum 0.72 mg/dL (0.55-1.02); EST Glomerular Filtration Rate 86 mL/min (>60); Est Glom Filt Rate - Afr Amer 104 mL/min (>60); Globulin 4.4 g/dL (2.2-4.2); Glucose 100 mg/dL (74-106); Potassium 3.7 mmol/L (3.5-5.1); Protein, Total 8.7 g/dL (6.4-8.2); Sodium Level 137 mmol/L (136-145)
[2022-05-10 16:55] VITALS: RESP 18
[2022-05-10 17:34] LABS: BNP,B-Type NATRIURETIC PEPTIDE 81.9 pg/mL (0-100)
[2022-05-10 18:19] VITALS: BP 159/81; PULSE 64; RESP 18; O2SAT 98
== END 2022-05-10 18:20 | disposition home or self-care (01) ==
PROVIDERS: Emergency Provider Emergency Medicine; PCP Family Medicine; Visit Provider Emergency Medicine
DX: M79.89 Other specified soft tissue disorders (principal); K74.60 Unspecified cirrhosis of liver; J44.9 Chronic obstructive pulmonary disease, unspecified; B19.20 Unspecified viral hepatitis C without hepatic coma; S20.229A Contusion of unspecified back wall of thorax, initial encounter; F17.210 Nicotine dependence, cigarettes, uncomplicated; R06.00 Dyspnea, unspecified; W19.XXXA Unspecified fall, initial encounter
CPT/HCPCS: 71045; 73010; 80053; 83880; 85025; 93005; 93970; 99282

== ENCOUNTER 2023-12-09 00:32 | Emergency (ER) | payer MEDICARE, MEDICAID, SELFPAY ==
[2023-12-09 00:36] VITALS: BP 162/82; PULSE 99; RESP 19; TEMP 36.6; O2SAT 94; BMI 21.4
[2023-12-09 00:39] VITALS: BP 162/82; PULSE 99; RESP 19; TEMP 36.6; O2SAT 94
--- NOTE | 2023-12-09 00:46 | EX.ED.DYSGE1 ---
HPI History of Present Illness Chief Complaint: Nausea/Vomiting Informant: patient and EMS Narrative Narrative: 68-year-old female brought in by EMS after she vomited twice in the past 3 hours, patient immediately combative with nurses saying that she does not want to be here especially at this hospital and is telling us that she is only here because her daughter called an ambulance for her. The patient denies having had abdominal pain or diarrhea or blood in the stool she has been having normal bowel movements and normal urination. She has COPD, she was 89% for EMS and 94% on room air here. She states she has an oxygen tank at home and uses it only when she needs it. She uses her COPD medications. She does not remember what they are. She states at times her COPD is worse, episodically. However over the last week, it does not sound like she has had any significant dyspnea or changes in sputum production or hemoptysis or fevers. She states her main issue is her legs, and that is why I am sick now. However she states her leg swelling, redness, and numbness in her feet have been present for the past 20 months and have been stable; she actually states that there has been erythema although up to her knees but it has gone down and now it is down to her mid legs where it has been for some time. She has developed some scabs and some areas. She was told that she has poor blood flow in her legs, and was actually advised by a specialist of some sort, somewhere, that she needed an amputation. She tells me that she told him no way, and I walked out. She thinks she has an ongoing infection in both of her legs. [facility] Medical History COPD (chronic obstructive pulmonary disease) Home Medications ?Medication ?Instructions ?Recorded ?Last Taken ?Type oxycodone 15 mg tablet 15 mg PO 4X/DAY 11/10/13 Unknown History budesonide-formoterol HFA 160 2 puff inhalation BID 05/10/20 Unknown History mcg-4.5 mcg/actuation aerosol inhaler diazepam 2 mg tablet 2 mg PO TID PRN PRN Vertigo #10 05/10/20 Unknown Rx TABLETS nirmatrelvir 300 mg (150 mg See Rx Instructions PO .COMPLEX 10/14/21 Unknown Rx x2)-ritonavir 100 mg tablet,dose #30 tabs pack (Paxlovid) ondansetron 4 mg disintegrating 4 mg PO Q6H PRN nausea and 10/14/21 Unknown Rx tablet vomiting #10 tabs potassium chloride 20 mEq 20 meq PO DAILY #7 tabs 10/14/21 Unknown Rx tablet,extended release Allergy/AdvReac Type Severity Reaction Status Date / Time adhesive Allergy NEEDS Verified 05/10/22 14:41 FOLLOW-UP cyclobenzaprine HCl (From Allergy Unknown Verified 05/10/22 14:41 Flexeril) nylon (Nylon 12) Allergy Unknown Verified 05/10/22 14:41 Social History Smoking Status: Current some day smoker tobacco type: cigarettes ROS ROS ED Constitutional Constitutional ED: Reports other Details: I don't feel good ; Denies chills or fever(s) Eyes Eyes: Denies change in vision or diplopia ENT ENT ED: Denies rhinorrhea or sore throat Cardiovascular Cardiovascular: Reports leg edema; Denies chest pain, palpitations or syncope Respiratory/Chest Respiratory/Chest: Reports cough and dyspnea on exertion Gastrointestinal Gastrointestinal: Reports nausea and vomiting; Denies abdominal pain, diarrhea, hematemesis, hematochezia or melena Genitourinary Genitourinary ED: Denies dysuria or hematuria Musculoskeletal Musculoskeletal: Denies back pain or neck pain Integumentary Reports rash and other Details: scabs on legs ; Denies abscess Neurologic Neurologic: Denies headache(s), paresthesias or weakness EXAM Physical Exam Const Vital Signs: 12/09/23 00:36 12/09/23 00:39 12/09/23 00:56 Temperature 98 F 98 F Temperature Source Temporal Temporal Pulse Rate 99 99 Respiratory Rate 19 H 19 H Respiratory Effort Normal Non-Labored Respiratory Depth Normal Respiratory Pattern Normal Blood Pressure 162/82 H 162/82 H Blood Pressure Mean 108 108 Pulse Ox 94 94 Oxygen Delivery Method Room Air Room Air Room Air Positive well nourished and well developed General Appearance ED: well developed and NAD HEENT Reports moist mucous membranes normocephalic and atraumatic Eyes PERRL and EOMs intact bilaterally Neck full ROM, no lymphadenopathy, supple and no JVD Resp normal respiratory effort and clear to auscultation bilaterally Resp Narrative: Diminished throughout, symmetrically. Otherwise clear. Effort and Inspection: able to speak in complete sentences Cardio regular rate, regular rhythm and no murmurs Rate: Negative for tachycardic GI non-tender and non-distended Auscultation: normoactive bowel sounds Palpation: soft Back/Spine no CVA tenderness General Back: other FROM Extremity normal to inspection Extremity Narrative: Symmetric erythema both feet and ankles and lower legs up to about the mid hernandez. Patient confirms they have looked like this for the past 20 months. Mildly tender at the edema of the ankles, but the erythema is not tender more proximally, bilaterally. There are a couple of scabs but no ulcerated wounds, these are nontender she is pushing around on them. Cap refill is about 3 or 4 seconds on both feet, closer to 4 on the left and closer to 3 on the right. Not able to palpate pulses in feet but limited by edema. There are no lesions or ulcerations or signs of necrotic tissue on the feet. General Extremety ED: Yes edema; Negative for pulses abnormal General Extremity: edema bilateral lower extremity Details: moderate; Negative for pulses abnormal Neuro oriented x3, CN's II-XII intact bilaterally, no sensory deficits noted and gait normal Sensorium / Orientation: awake and alert Motor Exam: strength 5/5 throughout Psych mental status grossly normal Skin Skin Narrative: See extremity exam. No other rashes or lesions. MDM MDM MDM Narrative Medical decision making narrative: After evaluating the patient I spoke with their and told her that my plan here was to give her something for her nausea, obtain some blood test, an EKG, and a chest x-ray. The differential here includes dyspepsia/indigestion, viral gastritis, stomach ulcer with or without bleeding, lower lobe pneumonia, acute coronary syndrome/AK. I discussed all this with her and she was in agreement but immediately thereafter, started talking about her legs. She states are not you going to give me antibiotics? I am sure you are not and then you are just going to send me out of here. I advised her that since she states nothing has significantly changed recently in her legs, the clinical appearance is probably due to chronic vascular disease in her legs, and some of the scabs could be due to venous ulcers that are healing as well, and that it is less likely that she has an acute infection, but I am not making any assumptions until I at least see some test results. I also advised her that I was not discharging her until we obtain some test results and saw how she responded to treatment. Her response to this was I am sure you are just going to send me home without antibiotics anyway so forget it, I am out of here. At this point the patient got up and walked out of the hospital and eloped prior to nursing/ancillary being able to execute any of the orders. Discharge Plan Triage Chief Complaint: Nausea/Vomiting Other Complaint: Shortness of Breath ED Provider: García Allred Dx/Rx/DC Orders Clinical Impression: Vomiting, H/O chronic obstructive lung disease, Edema of both lower extremities due to peripheral venous insufficiency Prescriptions: No Action oxycodone 15 MG tablet 15 mg PO 4X/DAY Patient Comments: budesonide-formoterol 1 INHALER inhaler 2 puff INHALATION BID diazepam 2 MG tablet 2 mg PO TID PRN PRN (Reason: Vertigo) Qty: 10 0RF ondansetron 4 mg tablet,disintegrating 4 mg PO Q6H PRN (Reason: nausea and vomiting) Qty: 10 0RF Paxlovid 300 mg (150 mg x 2)-100 mg tablets,dose pack See Rx Instructions .ROUTE .COMPLEX Qty: 30 0RF Rx Instructions: take TWO 150 mg tablets of nirmatrelvir with ONE 100 mg tablet of ritonavir twice daily for 5 days potassium chloride 20 mEq tablet extended release 20 meq PO DAILY Qty: 7 0RF Primary Care Provider: Fareed Riley Referrals: Fareed Riley DO [Primary Care Provider] - Print Language: Occitan Disposition Disposition: Elopement
--- NOTE | 2023-12-09 00:50 | ED.RN ---
Addendum entered by Harriet Thompson 12/09/23 01:04: Regarding the water comment when the patient arrived, this RN also stated I will give you water once the doctor okay's it, we may do scans and you have to be nothing by mouth for certain scans. Addendum entered by Harriet Thompson 12/09/23 01:02: Pt states she never wanted to come, her daughter called. She threw up yellow and she was worried. I hate coming to this hospital. When physician walked out Dr Allred stated she is not staying. Patient stated You arent listening to me This RN stated we barely have you checked in, we were trying to make sure you are oxygenated because you were 89% when squad was there, just give us one second to get your oxygen back on and check you in. The patient was disagreeable about everything. This RN walked her out, stated We are just here to help you, got her a glass of water and showed her where the phone and bathroom was out in the waiting room.The patients family member was reached and called back, we informed her that she has a ride coming and the patient said thank you. Original Note: The patient came by squad and the patient stated I am not talking until I get a drink of water. This RN stated You vomited so we cannot give you water but I can give you a mouth swab. The patient started scooting off the bed and this RN gave her a mouth swab and got her back into bed. The patient was already frustrated and yelling. Dr Allred came in and talked to her, the patient threw the blood pressure cuff off and scooted out of the bed and left.
[2023-12-09 00:56] VITALS: O2SAT 94
== END 2023-12-09 01:04 | disposition left against medical advice (07) ==
PROVIDERS: Emergency Provider Emergency Medicine; PCP Family Medicine; Visit Provider Emergency Medicine
DX: R11.2 Nausea with vomiting, unspecified (principal); J44.9 Chronic obstructive pulmonary disease, unspecified; F17.210 Nicotine dependence, cigarettes, uncomplicated; I87.2 Venous insufficiency (chronic) (peripheral)
CPT/HCPCS: 99283

== ENCOUNTER 2024-06-24 20:58 | Emergency (ER) | payer MEDICARE, MEDICAID, SELFPAY ==
[2024-06-24 20:59] VITALS: BP 185/97; PULSE 98; RESP 15; TEMP 36.8; O2SAT 98; BMI 21.6
--- NOTE | 2024-06-24 22:04 | ED.RN ---
PATIENT LWBS. PATIENT ADVISED THAT THE PATIENT DOOR NEEDED TO BE SHUT FOR HIPAA REASONS. PATIENT STATES THAT SHE IS CLAUSTROPHOBIC. YOU PUT IN IN THE CLOSET AND I CAN'T BREATH. PATIENT LEFT WITH DGHT.
== END 2024-06-24 22:25 | disposition left against medical advice (07) ==
LOC: ED 22:25
PROVIDERS: PCP Family Medicine
DX: Z53.21 Procedure and treatment not carried out due to patient leaving prior to being seen by health care provider (principal)
CPT/HCPCS: 99282